=== PATIENT | male | born 1950 | race Caucasian/White ===

== ENCOUNTER 2019-02-16 21:41 | Inpatient (IN) | payer MEDICARE ==
[~2019-02-16] VITALS: Ht 172.7 cm; Wt 68.0 kg
[~2019-02-16 21:41] MED LIST: BP MEDICATION; COLACE100 MG PO; DIFLUCAN200 MG PO; FLOMAX0.4 MG PO; FLORAJEN3 CAPS460 MG PO; Nicoderm [PBKC] TRANSDERM; OMNICEF300 MG PO; POTASSIUM99 M1; VISTARIL25 MG PO
[2019-02-16] MEDS ORDERED: BP PILL (21:43)
[2019-02-16] MEDS ORDERED: [UNRECOGNIZED DRUG - REMARK] (21:43)
[2019-02-16] MEDS ORDERED: DIABETIC PILL (21:44)
[2019-02-16 22:11] LABS: BASOPHILS 0.1 % (0-2); EOSINOPHILS 0.5 % (0-7); HEMATOCRIT 41.1 % (42.0-54.0); HEMOGLOBIN 14.1 g/dL (13.5-17.5); IMMATURE GRANULOCYTES 0.3 % (0-5); LYMPHOCYTES 3.7 % (15-50); MCH 32.6 pg (26.0-34.0); MCHC 34.3 g/dL (31.0-37.0); MCV 94.9 fL (80.0-100.0); MEAN PLATELET VOLUME 10.3 fL (7.4-10.4); MONOCYTES 6.4 % (2-11); RBC 4.33 10x6/uL (4.20-6.10); WBC 16.8 10x3/uL (4.8-10.8)
[2019-02-16 22:36] LABS: PLATELET COUNT 269 10x3/uL (130-400)
[2019-02-16 22:41] LABS: ANION GAP 15.5 mmol/L (8-16); CALCIUM 9.4 mg/dL (8.5-10.1); CARBON DIOXIDE 24.6 mmol/L (21.0-32.0); CREATININE - SERUM 1.6 mg/dL (0.6-1.3); POTASSIUM - SERUM 4.1 mmol/L (3.5-5.1)
[2019-02-16 22:47] LABS: ALBUMIN 3.7 g/dL (3.4-5.0); BILIRUBIN - TOTAL 0.61 mg/dL (0.2-1.3); PROTEIN - SERUM 8.5 g/dL (6.4-8.2)
[2019-02-16 22:55] LABS: APTT 36.9 SECONDS (22.8-39.4); INR 1.08 (0.85-1.17); PROTIME 13.5 SECONDS (11.6-15.0)
--- NOTE | 2019-02-17 02:05 | NUR ---
ADMITTED TO ROOM FROM ER ALERT AND ORIENTIATED, SEE ASSESSMENT, OPEN WOUND TO 2ND TOE LEFT FOOT STERILE DRESSING APPLIED ORDERED, DENIES PAIN, INSTRUCTED ON NEED TO BE ON BEDREST TONIGHT DUE TO RECENT DISLOCATED HIP WHICH WAS REPLACED IN ER, ALSO NOTHING TO EAT OR DRINK PENDING SURGERY OF TOE TOMORROW, VERBALIZED UNDERSTANDING, ORIENITATED TO ROOM CALL LIGHT IN REACH
[2019-02-17 02:32] VITALS: BP 153/79; BMI 22.8
--- NOTE | 2019-02-17 02:55 | NUR ---
I have reviewed this patient and I concur with the Shift Assessment completed by the Licensed Practical Nurse today this shift.
[2019-02-17 09:16] LABS: BASOPHILS 0.1 % (0-2); EOSINOPHILS 0.5 % (0-7); IMMATURE GRANULOCYTES 0.3 % (0-5); LYMPHOCYTES 4.3 % (15-50); MCH 32.5 pg (26.0-34.0); MCHC 34.2 g/dL (31.0-37.0); MEAN PLATELET VOLUME 9.9 fL (7.4-10.4); MONOCYTES 7.3 % (2-11); NEUTROPHILS 87.5 % (40-80); RDW 14.2 % (11.5-14.5); WBC 14.5 10x3/uL (4.8-10.8)
[2019-02-17 09:21] VITALS: BP 139/68
[2019-02-17 09:26] LABS: PLATELET COUNT 214 10x3/uL (130-400)
[2019-02-17 09:33] LABS: ANION GAP 11.3 mmol/L (8-16); CALCIUM 8.9 mg/dL (8.5-10.1); CARBON DIOXIDE 24.6 mmol/L (21.0-32.0); CREATININE - SERUM 1.4 mg/dL (0.6-1.3); POTASSIUM - SERUM 3.9 mmol/L (3.5-5.1)
--- NOTE | 2019-02-17 12:36 | NUR ---
PT RESTING IN BED. NO SIGNS OF DISTRESS. IV TO RIGHT AC PATENT NO REDNESS OR TENDERNESS. RIGHT SECOND TOE BLACK. COMPLAINS OF PAIN. MEDICATION GIVEN. CALL LIGHT REACH. BED LOW POSITION. NO FAMILY AT BEDSIDE AT THIS TIME.
[2019-02-17 12:40] VITALS: BP 125/70
[2019-02-17 13:00] VITALS: Ht 172.7 cm; Wt 68.0 kg
[2019-02-17 14:53] VITALS: BP 158/82
[2019-02-17 15:32] LABS: UDS - AMPHET NEGATIVE QUAL (NEGATIVE); UDS - BARB NEGATIVE QUAL (NEGATIVE); UDS - BENZO NEGATIVE QUAL (NEGATIVE); UDS - COCAINE NEGATIVE QUAL (NEGATIVE); UDS - OPIATE POSITIVE QUAL (NEGATIVE); UDS - PCP NEGATIVE QUAL (NEGATIVE); UDS - THC NEGATIVE QUAL (NEGATIVE)
[2019-02-17 15:45] LABS: APPEARANCE HAZY (CLEAR); BILIRUBIN NEGATIVE (NEGATIVE); COLOR YELLOW (YELLOW); GLUCOSE NEGATIVE (NEGATIVE); KETONE NEGATIVE (NEGATIVE); NITRITE POSITIVE (NEGATIVE); PROTEIN TRACE mg/dL (NEGATIVE); UROBILINOGEN NORMAL (NORMAL)
[2019-02-17 15:46] LABS: BACTERIA MANY /hpf (NEGATIVE); RED CELLS - URINE 0-5 /hpf (0-5); WHITE CELLS - URINE >50 /hpf (NEGATIVE)
--- NOTE | 2019-02-17 16:31 | NUR ---
Rehab Note- Acute INpatietn Rehab prescreen order received. THe patient has [employer] insurance and will require a PreAuth prior to an acute inpatient stay. He needs a PT & OT Eval completed to see the patient's functional mobility. Will follow at this time. THank you for this referral! Bettie Valadez RN Clinical Liaison, [facility] Rehab
--- NOTE | 2019-02-17 16:37 | MORECARE ---
CASE MANAGEMENT DISCHARGE SUMMARY PATIENT: ARTUR WHITE UNIT: [id number] ADM DATE: 02/17/19 AGE: 68 : 50 SEX: M ROOM/BED: D.2226 AUTHOR: DALLAS DUKE PHYSICIAN: REFERRING PHYSICIAN: MINOO TRIPLETT MD DATE OF SERVICE: 02/17/19 Discharge Plan Patient Name: ARTUR WHITE [facility] [facility] 1950 Planned Disposition: Home Anticipated Discharge Date: Discharge Date: Expected LOS: Initial Reviewer: [id number] Initial Review Date: 02/17/2019 Generated: 02/17/19 5:37 pm DCPIA - Discharge Planning Initial Assessment Updated by [email or web address]: Cheryl Peraza on 02/17/19 4:35 pm * Is the patient Alert and Oriented? Yes * [facility] * [facility] * Preadmission Environment Home Alone * ADLs Partial Dependent * Partial ADLs (Assistance needed) Ambulation * Equipment Power Chair or Electric Scooter Walker * List name and contact numbers for known caregivers / representatives who currently or will assist patient after discharge: Wellington White [facility] - [phone] * Verbal permission to speak to the caregivers and representatives has been obtained from the patient. Yes * Community resources currently utilized Private Duty Care * Additional services required to return to the preadmission environment? No * Can the patient safely return to the preadmission environment? Yes * Has this patient been hospitalized within the prior 30 days at any hospital? No Patient Name: ARTUR WHITE Page 12761 at 1637 All edits/amendments must be made on the electronic document DICTATION DATE: 02/17/19 163 OYSTER GRADER: TESFAYE 02/17/19 1636 RPT#: [id number] DC DATE: STATUS: ADM IN [facility] [address] [place] [address] END OF REPORT
--- NOTE | 2019-02-17 16:46 | MORECARE ---
CASE MANAGEMENT DISCHARGE SUMMARY PATIENT: ARTUR WHITE UNIT: [id number] ADM DATE: 02/17/19 AGE: 68 : 50 SEX: M ROOM/BED: D.2226 AUTHOR: DALLAS DUKE PHYSICIAN: REFERRING PHYSICIAN: MINOO TRIPLETT MD DATE OF SERVICE: 02/17/19 Discharge Plan Patient Name: ARTUR WHITE Facility: [facility]:[place] : 1950 Planned Disposition: Home Anticipated Discharge Date: Discharge Date: Expected LOS: Initial Reviewer: [email or web address] Initial Review Date: 02/17/2019 Generated: 02/17/19 5:46 pm Comments DCP- Discharge Planning Updated by [email or web address]: Cheryl Peraza on 02/17/19 3:[address] Patient Name: ARTUR WHITE Admission Status: ER Accout number: [id number] Admission Date: 02-17-2019 : 1950 Admission Diagnosis: Attending: MINOO TRIPLETT Current LOS: 1 Anticipated DC Date: Planned Disposition: Home Primary Insurance: [employer] MEDICARE ADV Discharge Planning Comments: CM met with patient to complete initial dc planning assessment, he is alone in the room. CM educated patient on the CM role and verbal consent given by patient to complete assessment. Patient lives at [facility] at [address] He lives alone. At discharge patient plans to return and feels this is a safe discharge. CM discussed availability of home health, rehab services, and medical equipment. Patient states he has a animal care assistant "from the [place] that comes in twice a week on and to assist with house cleaning and bathing. He states he is mainly always in his electric wheelchair. He [facility] He states his sister will get the pain medicine he needs, [facility], so if home health is needed, it would need to be set up through the [facility], he voices understanding. A rehab screen has been ordered, it would require preauthorization. CM will continue to follow and will assist as needed with dc plans/needs. Ed Transporter: Cheryl Peraza DCPIA - Discharge Planning Initial Assessment Updated by [id number]: Cheryl Peraza on 02/17/19 4:35 pm * Is the patient Alert and Oriented? Yes * [place]CP [facility] [place] [facility] * [place] * Preadmission Environment Home Alone * ADLs Partial Dependent * Partial ADLs (Assistance needed) Ambulation * Equipment Power Chair or Electric Scooter Walker * List name and contact numbers for known caregivers / representatives who currently or will assist patient after discharge: Wellington White - [facility] - [phone] * Verbal permission to speak to the caregivers and representatives has been obtained from the patient. Yes * Community resources currently utilized Private Duty Care * Additional services required to return to the preadmission environment? No * Can the patient safely return to the preadmission environment? Yes * Has this patient been hospitalized within the prior 30 days at any hospital? No Last DP export: 02/17/19 3:37 Patient Name: ARTUR WHITE Page 99816 at 1646 All edits/amendments must be made on the electronic document DICTATION DATE: 02/17/191645 MARINE SURVEYOR: TESFAYE 02/17/191645 RPT#: [id number] DC DATE: STATUS: ADM IN [facility] [address] [place] [address] END OF REPORT
--- NOTE | 2019-02-17 20:00 | NUR ---
ASSESSMENT PER FLOWSHEET. IV PATENT RT AC OF NS AT 50CC'S/HR. LEFT FOOT SECONG TOE AMPUTATED DRSG C/D/I.RIGHT FOOT SECOND TOE WITH TINY BLACK SORE NOTED. SR UP X2 CALL LIGHT WITHIN REACH.
[2019-02-17 20:28] VITALS: BP 137/68
--- NOTE | 2019-02-17 21:30 | NUR ---
MEDS GIVEN PER MAR. ROLP=170. NO COVERAGE NEEDED.
--- NOTE | 2019-02-18 00:07 | NUR ---
EYES CLOSED RESPIRATIONS WITH EASE AND UNLABORED.
[2019-02-18 01:16] VITALS: BP 130/64
[2019-02-18 04:54] VITALS: BP 129/72
[2019-02-18 06:39] LABS: ANION GAP 14.9 mmol/L (8-16); BILIRUBIN - TOTAL 0.58 mg/dL (0.2-1.3); CALCIUM 8.6 mg/dL (8.5-10.1); CARBON DIOXIDE 21.6 mmol/L (21.0-32.0); CREATININE - SERUM 1.4 mg/dL (0.6-1.3); POTASSIUM - SERUM 3.5 mmol/L (3.5-5.1); PROTEIN - SERUM 6.9 g/dL (6.4-8.2)
[2019-02-18 06:47] LABS: ALBUMIN 2.7 g/dL (3.4-5.0)
--- NOTE | 2019-02-18 07:17 | NUR ---
PT RESTING IN BED WITH EYES OPEN, ALERT AND ORIENTED. IV LOCATED TO RIGHT AC CURRENTLY RCVING NS @ 50ML. NO S/S OF DISTRESS AND DENIES NEEDS, WILL CONT TO MONITOR.
[2019-02-18 07:46] LABS: BASOPHILS 0.2 % (0-2); EOSINOPHILS 2.5 % (0-7); HEMATOCRIT 37.4 % (42.0-54.0); HEMOGLOBIN 12.5 g/dL (13.5-17.5); IMMATURE GRANULOCYTES 0.2 % (0-5); MCH 32.1 pg (26.0-34.0); MCHC 33.4 g/dL (31.0-37.0); MCV 95.9 fL (80.0-100.0); MONOCYTES 7.2 % (2-11); NEUTROPHILS 78.9 % (40-80); PLATELET COUNT 215 10x3/uL (130-400); RDW 14.6 % (11.5-14.5); WBC 11.1 10x3/uL (4.8-10.8)
[2019-02-18 09:21] VITALS: BP 123/64
[2019-02-18 13:10] VITALS: BP 121/63
[2019-02-18 16:21] VITALS: BP 117/61
--- NOTE | 2019-02-18 17:16 | NUR ---
OT NOTE: PT COMPLETED SUPINE TO SIT WITH MIN A. PT COMPLETED SIT TO STAND WITH MIN A. PT IS [place] AND REQUIRED CUES. PT COMPLETED GROOMING TASKS WITH CGA. THANK YOU, STEFANIE GRIFFIN
--- NOTE | 2019-02-18 19:47 | NUR ---
IN BED WITH TELEVISION ON, PLEASANT MOOD AND AFFECT, IV TO RIGHT AC IS INFUSING NS AT 50 VIA PUMP, ABLE TO VOICE ALL NEEDS. DENIES PAIN. BLOOD SUGAR WAS 167 DID NOT WANT INSULIN. ON CONTACT ISOLATION WITH ALL PRECAUTIONS IN PLACE. DENIES ANY ACUTE DISTRESS. WILL NOTE ANY CHANGE.
[2019-02-18 20:00] VITALS: BP 138/72
--- NOTE | 2019-02-18 23:41 | NUR ---
RESTING WELL SO FAR THIS SHIFT, HAS VOICED NO CONCERNS. WILL CONTINUE TO OBSERVE.
--- NOTE | 2019-02-19 03:44 | NUR ---
I have reviewed this patient and I concur with the Shift Assessment completed by the Licensed Practical Nurse today this shift.
[2019-02-19 04:00] VITALS: BP 1685/84
[2019-02-19 06:23] LABS: ANION GAP 15.1 mmol/L (8-16); CALCIUM 8.7 mg/dL (8.5-10.1); CARBON DIOXIDE 25.2 mmol/L (21.0-32.0); CREATININE - SERUM 1.3 mg/dL (0.6-1.3); POTASSIUM - SERUM 3.3 mmol/L (3.5-5.1)
[2019-02-19 06:41] LABS: BASOPHILS 0.3 % (0-2); EOSINOPHILS 3.1 % (0-7); HEMOGLOBIN 13.3 g/dL (13.5-17.5); IMMATURE GRANULOCYTES 0.1 % (0-5); LYMPHOCYTES 12.8 % (15-50); MCH 32.2 pg (26.0-34.0); MCHC 34.1 g/dL (31.0-37.0); MCV 94.4 fL (80.0-100.0); MEAN PLATELET VOLUME 10.8 fL (7.4-10.4); MONOCYTES 7.1 % (2-11); NEUTROPHILS 76.6 % (40-80); PLATELET COUNT 246 10x3/uL (130-400); RBC 4.13 10x6/uL (4.20-6.10); RDW 14.1 % (11.5-14.5)
[2019-02-19 06:44] LABS: WBC 7.3 10x3/uL (4.8-10.8)
--- NOTE | 2019-02-19 07:00 | NUR ---
ALERT AND ORIENTED, RESTING IN BED. ON CONTACT ISOLATION FOR POSSIBLE STAPH IN WOUND. WOUND TO RIGHT FOOT, SECOND TOE. UP WITH ASSIST. NO C/O PAIN. NO S/S OF ACUTE DISTRESS NOTED. IV TO RIGHT AC, NS INFUSING @ 50ML/HR. SITE PATENT WITHOUT REDNESS OR SWELLING. ACHS. PATIENT DENIES ANY NEEDS AT THIS TIME. CALL LIGHT IN REACH. WILL CONTINUE TO MONITOR.
[2019-02-19 09:50] VITALS: BP 183/97
--- NOTE | 2019-02-19 10:41 | NUR ---
OT NOTE: PT REPORTED FEELING BETTER TODAY. BED MOB WITH MOD ASSIST; EOB SITTING WITH CGA(FAIR STATIC SITTING BALANCE)..ATTEMPTED SIT TO STAND WITH BOTH OT AND PT; F-/P+ STANDING BALANCE. LEANS BACKWARDS DURING ALL STANDING ATTEMPTS. BED MOB BACK TO BED WITH MOD ASSIST TO PREVENT INJURY TO L HIP. SIMPLE GROOMING AND USE OF URINAL WITH SET UP. JONATHON PERRY, OTR/L
--- NOTE | 2019-02-19 12:02 | NUR ---
Rehab NOte- Per OT & PT Evals the patient is low level, would suggest a SNF. Spoke with LUAN Luna. Thank you for this referral! Bettie Valadez RN Clinical Liaison, [facility] Rehab
--- NOTE | 2019-02-19 12:44 | MORECARE ---
CASE MANAGEMENT DISCHARGE SUMMARY PATIENT: ARTUR WHITE UNIT: [id number] ADM DATE: 02/17/19 AGE: 68 : 50 SEX: M ROOM/BED: D.2226 AUTHOR: DALLAS DUKE PHYSICIAN: REFERRING PHYSICIAN: MINOO TRIPLETT MD DATE OF SERVICE: 02/19/19 Discharge Plan Patient Name: ARTUR WHITE Facility: [facility]:[place] : 1950 Planned Disposition: Home Anticipated Discharge Date: Discharge Date: Expected LOS: Initial Reviewer: [email or web address] Initial Review Date: 02/17/2019 Generated: 02/19/19 1:43 pm DCP- Discharge Planning Updated by [email or web address]: Cheryl Peraza on 02/17/19 3:[address] Patient Name: ARTUR WHITE Admission Status: ER Accout number: [id number] Admission Date: 02-17-2019 : 1950 Admission Diagnosis: Attending: MINOO TRIPLETT Current LOS: 1 Anticipated DC Date: Planned Disposition: Home Primary Insurance: [employer] MEDICARE ADV Discharge Planning Comments: CM met with patient to complete initial dc planning assessment, he is alone in the room. CM educated patient on the CM role and verbal consent given by patient to complete assessment. Patient lives at [facility] at [address] He lives alone. At discharge patient plans to return and feels this is a safe discharge. CM discussed availability of home health, rehab services, and medical equipment. Patient states he has a transition of care specialist "from the [place] that comes in twice a week on and to assist with house cleaning and bathing. He states he is mainly always in his electric wheelchair. He states he [facility] not [facility]. He states his sister will get the pain medicine he needs, [facility] only [facility] for [facility], so if home health is needed, it would need to be set up through the [facility], he voices understanding. A rehab screen has been ordered, it would require preauthorization. CM will continue to follow and will assist as needed with dc plans/needs. Career Services Manager: Cheryl Peraza DCPIA - Discharge Planning Initial Assessment Updated by [email or web address]: Cheryl Peraza on 02/17/19 4:35 pm * Is the patient Alert and Oriented? Yes * PCP [facility] [place] [facility] * [place] * Preadmission Environment Home Alone * ADLs Partial Dependent * Partial ADLs (Assistance needed) Ambulation * Equipment Power Chair or Electric Scooter Walker * List name and contact numbers for known caregivers / representatives who currently or will assist patient after discharge: Wellington White - [facility] - [phone] * Verbal permission to speak to the caregivers and representatives has been obtained from the patient. Yes * Community resources currently utilized Private Duty Care * Additional services required to return to the preadmission environment? No * Can the patient safely return to the preadmission environment? Yes * Has this patient been hospitalized within the prior 30 days at any hospital? No Coverage Notice Reviewer: [id number] - Cheryl Peraza Notice Issued Date-Time: 02/19/2019 12:39 Notice Type: Patient Choice Letter Notice Delivered To: Patient Relationship to Patient: Self Contract Mail Carrier Name: Delivery Method: HAND - Hand Delivered Katherin Days: Prior Verbal Notification: Recipient Understood Notice: Yes Recipient Signature: Yes Med Rec Note Co-signed by Attending: Coverage Notice Comment: [place] [facility], [facility] Last DP export: 02/17/19 3:46 Patient Name: ARTUR WHITE Page 79777 at 1244 All edits/amendments must be made on the electronic document DICTATION DATE: 02/19/19 124 VIDEOTAPE RECORDING ENGINEER: TESFAYE 02/19/19 1243 RPT#: [id number] DC DATE: STATUS: ADM IN [facility] [address] [place] [address] END OF REPORT
--- NOTE | 2019-02-19 12:51 | MORECARE ---
CASE MANAGEMENT DISCHARGE SUMMARY PATIENT: ARTUR WHITE UNIT: [id number] ADM DATE: 02/17/19 AGE: 68 : 50 SEX: M ROOM/BED: D.2226 AUTHOR: DALLAS DUKE PHYSICIAN: REFERRING PHYSICIAN: MINOO TRIPLETT MD DATE OF SERVICE: 02/19/19 Discharge Plan Patient Name: ARTUR WHITE Facility[facility]:[place] : 1950 Planned Disposition: Home Anticipated Discharge Date: Discharge Date: Expected LOS: Initial Reviewer: [email or web address] Initial Review Date: 02/17/2019 Generated: 02/19/19 1:50 pm DCP- Discharge Planning Updated by [email or web address]: Cheryl Peraza on 02/17/19 3:[address] Patient Name: ARTUR WHITE Admission Status: ER Accout number: [id number] Admission Date: 02-17-2019 : 1950 Admission Diagnosis: Attending: MINOO TRIPLETT Current LOS: 1 Anticipated DC Date: Planned Disposition: Home Primary Insurance: [employer] MEDICARE ADV Discharge Planning Comments: CM met with patient to complete initial dc planning assessment, he is alone in the room. CM educated patient on the CM role and verbal consent given by patient to complete assessment. Patient lives at [facility] at [address] He lives alone. At discharge patient plans to return and feels this is a safe discharge. CM discussed availability of home health, rehab services, and medical equipment. Patient states he has a respiratory care program director "from the [place] that comes in twice a week on and to assist with house cleaning and bathing. He states he is mainly always in his electric wheelchair. He states he does not [facility]. He states his sister will get the pain medicine he needs, [facility] only [facility] for his [facility], so if home health is needed, it would need to be set up through the [facility], he voices understanding. A rehab screen has been ordered, it would require preauthorization. CM will continue to follow and will assist as needed with dc plans/needs. Books Salesperson: Cheryl Peraza DCPIA - Discharge Planning Initial Assessment Updated by [id number]: Cheryl Peraza on 02/17/19 4:35 pm * Is the patient Alert and Oriented? Yes * PCP [facility] [place] [facility] * [place] * Preadmission Environment Home Alone * ADLs Partial Dependent * Partial ADLs (Assistance needed) Ambulation * Equipment Power Chair or Electric Scooter Walker * List name and contact numbers for known caregivers / representatives who currently or will assist patient after discharge: Wellington White - [facility] - [phone] * Verbal permission to speak to the caregivers and representatives has been obtained from the patient. Yes * Community resources currently utilized Private Duty Care * Additional services required to return to the preadmission environment? No * Can the patient safely return to the preadmission environment? Yes * Has this patient been hospitalized within the prior 30 days at any hospital? No External Providers External Provider: [facility] Next Contact Date: Service Request Date: Service Type: Resolution: Reviewer: Comments: Coverage Notice Reviewer: [id number] - Cheryl Peraza Notice Issued Date-Time: 02/19/2019 12:39 Notice Type: Patient Choice Letter Notice Delivered To: Patient Relationship to Patient: Self Gristmill Operator Name: Delivery Method: HAND - Hand Delivered Katherin Days: Prior Verbal Notification: Recipient Understood Notice: Yes Recipient Signature: Yes Med Rec Note Co-signed by Attending: Coverage Notice Comment: [place] [facility] FIRST, [facility] SECOND Last DP export: 02/19/19 11:44 Patient Name: ARTUR WHITE Page 43537 at 1251 All edits/amendments must be made on the electronic document DICTATION DATE: 02/19/19 1250 PAINTER SUPERVISOR: TESFAYE 02/19/19 1250 RPT#: [id number] DC DATE: STATUS: ADM IN [facility] [address] [place] [address] END OF REPORT
--- NOTE | 2019-02-19 12:59 | MORECARE ---
CASE MANAGEMENT DISCHARGE SUMMARY PATIENT: ARTUR WHITE UNIT: [id number] ADM DATE: 02/17/19 AGE: 68 : 50 SEX: M ROOM/BED: D.2226 AUTHOR: LEILANI,DOC PHYSICIAN: REFERRING PHYSICIAN: MINOO TRIPLETT MD DATE OF SERVICE: 02/19/19 Discharge Plan Patient Name: ARTUR WHITE Facility[facility]:[place] : 1950 Planned Disposition: Home Anticipated Discharge Date: Discharge Date: Expected LOS: Initial Reviewer: [email or web address] Initial Review Date: 02/17/2019 Generated: 02/19/19 1:58 pm Comments DCP- Discharge Planning Updated by [email or web address]: Cheryl Peraza on 02/19/19 11:[address] I spoke with Bettie in inpatient rehab and she recommends SNF placement. I spoke with the patient and he chooses [facility] for his first choice and [facility] for his second choice. I called pilar Cash for [facility], and clinical faxed to [phone]. Shreya states she will forward the fax to [facility]. CM will continue to follow and assist with discharge planning/needs. DCP- Discharge Planning Updated by [email or web address]: Cheryl Peraza on 02/17/19 3:[address] Patient Name: ARTUR WHITE Admission Status: ER Accout number: [id number] Admission Date: 02-17-2019 : 1950 Admission Diagnosis: Attending: MINOO TRIPLETT Current LOS: 1 Anticipated DC Date: Planned Disposition: Home Primary Insurance: Pay-Me MEDICARE ADV Discharge Planning Comments: CM met with patient to complete initial dc planning assessment, he is alone in the room. CM educated patient on the CM role and verbal consent given by patient to complete assessment. Patient lives at [facility] at [address] He lives alone. At discharge patient plans to return and feels this is a safe discharge. CM discussed availability of home health, rehab services, and medical equipment. Patient states he has a medicare interviewer [place] that comes [place] week on and to assist with house cleaning and bathing. He states he is mainly always in his electric wheelchair. He states he does not wish to be [facility] to the [facility]. He states his sister will get the pain medicine he needs, [facility]. [facility] only [facility] for his physician, so if home health is needed, it would need to be set up through the VA, he voices understanding. A rehab screen has been ordered, it would require preauthorization. CM will continue to follow and will assist as needed with dc plans/needs. Ballistics Expert: Cheryl Peraza DCPIA - Discharge Planning Initial Assessment Updated by [email or web address]: Cheryl Peraza on 02/17/19 4:35 pm * Is the patient Alert and Oriented? Yes * [facility]CP [facility] [place] [facility] * [place] * Preadmission Environment Home Alone * ADLs Partial Dependent * Partial ADLs (Assistance needed) Ambulation * Equipment Power Chair or Electric Scooter Walker * List name and contact numbers for known caregivers / representatives who currently or will assist patient after discharge: Wellington White - [facility] - [phone] * Verbal permission to speak to the caregivers and representatives has been obtained from the patient. Yes * Community resources currently utilized Private Duty Care * Additional services required to return to the preadmission environment? No * Can the patient safely return to the preadmission environment? Yes * Has this patient been hospitalized within the prior 30 days at any hospital? No Coverage Notice Reviewer: [id number] Peraza Notice Issued Date-Time: 02/19/2019 12:39 Notice Type: Patient Choice Letter Notice Delivered To: Patient Relationship to Patient: Self Manager Action Name: Delivery Method: HAND - Hand Delivered Katherin Days: Prior Verbal Notification: Recipient Understood Notice: Yes Recipient Signature: Yes Med Rec Note Co-signed by Attending: Coverage Notice Comment: [place] [facility], [facility] Reviewer: [id number] Jerry Peraza Notice Issued Date-Time: 02/19/2019 12:50 Notice Type: Patient Choice Letter Notice Delivered To: Patient Relationship to Patient: Self Manager Action Name: Delivery Method: HAND - Hand Delivered Katherin Days: Prior Verbal Notification: Recipient Understood Notice: Yes Recipient Signature: Yes Med Rec Note Co-signed by Attending: Coverage Notice Comment: [place] [facility] 1)[facility] 2) [facility] Last DP export: 02/19/19 11:51 Patient Name: ARTUR WHITE Page 98999 at 1259 All edits/amendments must be made on the electronic document DICTATION DATE: 02/19/191257 RESTRICTIVE PREPARATION OPERATOR: TESFAYE 02/19/191257 RPT#: [id number] DC DATE: STATUS: ADM IN [facility] [address] [place] [address] END OF REPORT
--- NOTE | 2019-02-19 13:13 | NUR ---
NUTRITION F/U CHART REVIEWED, PT VISIT. TOLERATING DIABETIC DIET WITH GOOD INTAKE RECENT MEALS. REMAINS IN ISOLATION. WILL CONTINUE TO PROVIDE DIET, MONITOR PO INTAKE. RD FOLLOWING
--- NOTE | 2019-02-19 16:55 | NUR ---
I have reviewed this patient and I concur with the Shift Assessment completed by the Licensed Practical Nurse today this shift.
[2019-02-19 17:07] VITALS: BP 163/75
--- NOTE | 2019-02-19 18:45 | NUR ---
ALERT AND ORIENTED, RESTING IN BED. NO C/O PAIN. NO S/S OF ACUTE DISTRESS NOTED. CALL LIGHT IN REACH. DENIES ANY NEEDS AT THIS TIME.
[2019-02-19 19:40] VITALS: BP 169/84
--- NOTE | 2019-02-19 19:45 | NUR ---
PT ALERT AND ORIENTED, SLURS WORDS, BUT ANSWERS APPROPRIATELY. DRESSING TO LEFT FOOT INTACT. 2ND TOE ON RIGHT FOOT HAS SCABBED AREA, PT DENIES PAIN AT THIS TIME, FSBS 109, WILL CONTINUE TO MONITOR.
--- NOTE | 2019-02-20 03:05 | NUR ---
I have reviewed this patient and I concur with the Shift Assessment completed by the Licensed Practical Nurse today this shift.
[2019-02-20 04:00] VITALS: BP 162/90
[2019-02-20 05:23] LABS: BASOPHILS 0.3 % (0-2); EOSINOPHILS 4.6 % (0-7); HEMATOCRIT 37.7 % (42.0-54.0); HEMOGLOBIN 12.6 g/dL (13.5-17.5); IMMATURE GRANULOCYTES 0.4 % (0-5); LYMPHOCYTES 19.1 % (15-50); MCH 31.6 pg (26.0-34.0); MCHC 33.4 g/dL (31.0-37.0); MCV 94.5 fL (80.0-100.0); MEAN PLATELET VOLUME 10.5 fL (7.4-10.4); MONOCYTES 9.7 % (2-11); NEUTROPHILS 65.9 % (40-80); PLATELET COUNT 251 10x3/uL (130-400); RBC 3.99 10x6/uL (4.20-6.10); RDW 13.9 % (11.5-14.5)
[2019-02-20 05:52] LABS: ANION GAP 13.2 mmol/L (8-16); CALCIUM 8.9 mg/dL (8.5-10.1); CARBON DIOXIDE 24.4 mmol/L (21.0-32.0); CREATININE - SERUM 1.2 mg/dL (0.6-1.3); POTASSIUM - SERUM 3.6 mmol/L (3.5-5.1)
--- NOTE | 2019-02-20 07:47 | NUR ---
PT RESTING IN BED. NO SIGNS OF DISTRESS. IV TO RIGHT HAND PATENT NO REDNESS OR TENDERNESS. HAS DRESSING TO LEFT FOOT SECOND TOE. DENIES ANY FURTHER NEED AT THIS TIME. CALL LIGHT IN REACH. BED LOW POSITION. NO FAMILY AT BEDSIDE AT THIS TIME.
[2019-02-20 08:08] VITALS: BP 154/81
--- NOTE | 2019-02-20 12:12 | NUR ---
OT NOTE: UPON ENTERING ROOM, PT WAS CONFUSED AND DISORIENTED. REQUESTING FOR SOMEONE TO HELP HIM GET BACK DOWN TO HIS ROOM DOWNSTAIRS. ATTEMPTED TO RE-ORIENT PT AND AFTER SOME TIME, PT WAS DOING BETTER. THROUGHOUT THERAPY SESSION, HE REMEMBERED MARIEL, THE PHYS THERAPIST, AND MYSELF( THOUGH IT WAS THE WRONG NAME). BED MOB WITH MIN/MOD ASSIST; SITTING BALANCE ON EOB WAS IMPROVED FROM YESTERDAY AND HE WAS ABLE TO MAINTAIN STATIC SITTING WITH SBA. SIT TO STAND WITH MIN ASSIST AND USE OF WALKER. MIN/MOD ASSIST FOR STANDING BALANCE. PT UNABLE TO ADVANCE FEET FORWARD OR SIDE STEP. ABLE TO WASH FACE AND HANDS WITH CLOTH, MIN ASSIST TO CLIFF GOWN; MAX ASSIST TO CLIFF SOCK. PROVIDED CLEAN LINENS AND REQUIRED MOD ASSIST FOR SIT TO SUPINE; CONSTANT CUES FOR HIP PRECAUTIONS. JONATHON PERRY, Babita TR/L
[2019-02-20 13:32] VITALS: BP 154/77
[2019-02-20 14:21] VITALS: BP 154/77
[2019-02-20 16:30] VITALS: BP 141/83
--- NOTE | 2019-02-20 18:59 | NUR ---
PATIENT RESTING IN BED WITH NO S/S OF DISTRESS AND DENIES NEEDS AT THIS TIME. BED IN LOWEST POSITION AND CALL LIGHT WITHIN REACH. ENCOURAGED THE PATIENT TO CALL IF HE HAS NEEDS. WILL CONTINUE TO MONITOR.
--- NOTE | 2019-02-20 19:29 | NUR ---
PATIENT RESTING IN BED WITH NO S/S OF DISTRESS. PATIENT REQIESTED MEDICATION FOR PAIN. ADMINISTERED TYLENOL PER ORDERS. PATIENT DENIES OTHER NEEDS AT THIS TIME. BED IN LOWEST POSITION AND CALL LIGHT WITHIN REACH. ENCOURAGED THE PATIENT TO CALL IF SHE HAS NEEDS. WILL CONTINUE TO MONITOR.
[2019-02-20 20:00] VITALS: BP 162/81
[2019-02-21 04:00] VITALS: BP 157/83
[2019-02-21 05:57] LABS: BASOPHILS 0.4 % (0-2); EOSINOPHILS 6.8 % (0-7); HEMATOCRIT 37.3 % (42.0-54.0); HEMOGLOBIN 12.6 g/dL (13.5-17.5); IMMATURE GRANULOCYTES 0.4 % (0-5); LYMPHOCYTES 24.9 % (15-50); MCH 31.6 pg (26.0-34.0); MCHC 33.8 g/dL (31.0-37.0); MCV 93.5 fL (80.0-100.0); MEAN PLATELET VOLUME 10.1 fL (7.4-10.4); MONOCYTES 7.8 % (2-11); NEUTROPHILS 59.7 % (40-80); PLATELET COUNT 238 10x3/uL (130-400); RBC 3.99 10x6/uL (4.20-6.10); RDW 13.7 % (11.5-14.5)
[2019-02-21 06:10] LABS: CALCIUM 8.7 mg/dL (8.5-10.1); CARBON DIOXIDE 24.3 mmol/L (21.0-32.0); CREATININE - SERUM 1.2 mg/dL (0.6-1.3); POTASSIUM - SERUM 3.3 mmol/L (3.5-5.1)
--- NOTE | 2019-02-21 07:39 | NUR ---
PT RESTING IN BED. NO SIGNS OF DISTRESS. IV TO RIGHT HAND PATENT NO REDNESS OR TENDERNESS. HAS INCISION TO SECOND TOE ON LEFT FOOT. DRESSING CLEAN AND INTACT. ON CONTACT ISO. DENIES ANY FURTHER NEED AT THIS TIME. CALL LIGHT IN REACH. BED LOW POSITION. NO FAMILY AT BEDSIDE AT THIS TIME.
[2019-02-21 07:49] VITALS: BP 164/81
[2019-02-21 13:10] VITALS: BP 135/77
--- NOTE | 2019-02-21 14:49 | NUR ---
I have reviewed this patient and I concur with the Shift Assessment completed by the Licensed Practical Nurse today this shift.
--- NOTE | 2019-02-21 14:50 | NUR ---
I have reviewed this patient and I concur with the Shift Assessment completed by the Licensed Practical Nurse today this shift.
[2019-02-21 17:04] VITALS: BP 159/79
--- NOTE | 2019-02-21 19:18 | NUR ---
PATIENT RESTING IN BED WITH NO S/S OF DISTRESS. EMPTIED PATIENT'S URINALS AND CLEARED HIS DINNER TRAY. PATIENT DENIES OTHER NEEDS AT THIS TIME. BED IN LOWEST POSITION AND CALL LIGHT WITHIN REACH. ENCOURAGED THE PATIENT TO CALL IF HE HAS OTHER NEEDS. WILL CONTINUE TO MONITOR.
[2019-02-21 20:00] VITALS: BP 153/77
[2019-02-22] VITALS: BP 138/73
[2019-02-22 04:00] VITALS: BP 144/75
[2019-02-22 05:13] LABS: ANION GAP 14.9 mmol/L (8-16); CREATININE - SERUM 1.2 mg/dL (0.6-1.3); POTASSIUM - SERUM 3.9 mmol/L (3.5-5.1)
--- NOTE | 2019-02-22 07:23 | NUR ---
PT RESTING IN BED. NO SIGNS OF DISTRESS. IV TO LEFT FORARM PATENT NO REDNESS OR TENDERNESS. HAS INCISION TO LEFT FOOT SECOND TOE. DENIES ANY FURHTER NEED AT THIS TIME. CALL LIGHT IN REACH. BED LOW POSITION. NO FAMILY AT BEDSIDE AT THIS TIME.
[2019-02-22 08:48] VITALS: BP 164/89
[2019-02-22] MEDS ORDERED: GLUCOPHAGE500 MG PO (10:00)
[2019-02-22] MEDS ORDERED: SULAR34 MG PO (10:01)
[2019-02-22] MEDS ORDERED: K-TAB10 MEQ PO (10:02)
[2019-02-22] MEDS ORDERED: AMBIEN5 MG PO (10:03)
[2019-02-22] MEDS ORDERED: FLOMAX0.4 MG PO (10:03)
[2019-02-22] MEDS ORDERED: PROCARDIA XL30 MG PO (10:06)
[2019-02-22] MEDS ORDERED: GEMFIBROZIL600 MG PO (10:06)
--- NOTE | 2019-02-22 10:06 | MORECARE ---
CASE MANAGEMENT DISCHARGE SUMMARY PATIENT: ARTUR LEE UNIT: [id number] ADM DATE: 02/17/19 AGE: 68 : 50 SEX: M ROOM/BED: D.2226 AUTHOR: LEILANI,DOC PHYSICIAN: REFERRING PHYSICIAN: MINOO TRIPLETT MD DATE OF SERVICE: 02/22/19 Discharge Plan Patient Name: ARTUR LEE Facility[facility]:[place] : 1950 Planned Disposition: Home Anticipated Discharge Date: Discharge Date: Expected LOS: Initial Reviewer: [id number] Initial Review Date: 02/17/2019 Generated: 02/22/19 11:06 am Comments DCP- Discharge Planning Updated by [email or web address]: Cheryl Peraza on 02/22/19 9:[address] I called [facility] and left a message with Jessy on referral. I spoke with Tequila Rockwell, and she states she has not received clinical for SNF auth yet. CM will continue to follow and assist with discharge planning/needs. DCP- Discharge Planning Updated by [email or web address]: Cheryl Peraza on 02/19/19 11:[address] I spoke with Bettie in inpatient rehab and she recommends SNF placement. I spoke with the patient and he chooses [facility] for his first choice and [facility] for his second choice. I called pilar Cash for [facility], and clinical faxed to [phone]. Shreya states she will forward the fax to [facility]. CM will continue to follow and assist with discharge planning/needs. DCP- Discharge Planning Updated by [id number]: Cherylgiuliano Peraza on 02/17/19 3:[address] Patient Name: ARTUR LEE Admission Status: ER Accout number: [id number] Admission Date: 02-17-2019 : 1950 Admission Diagnosis: Attending: MINOO TRIPLETT Current LOS: 1 Anticipated DC Date: Planned Disposition: Home Primary Insurance: WELLCARE MEDICARE ADV Discharge Planning Comments: CM met with patient to complete initial dc planning assessment, he is alone in the room. CM educated patient on the CM role and verbal consent given by patient to complete assessment. Patient lives at [facility] at [address] He lives alone. At discharge patient plans to return and feels this is a safe discharge. CM discussed availability of home health, rehab services, and medical equipment. Patient states he has a health and social care teacher "from the [place] that comes in twice a week on and to assist with house cleaning and bathing. He states he is mainly always in his electric wheelchair. [facility] He states his sister will get the pain medicine he needs, usually [facility] medicine [facility] [place]. [facility] only uses [facility] [place] for his physician, so if home health is needed, it would need to be set up through the [place], he voices understanding. A rehab screen has been ordered, it would require preauthorization. CM will continue to follow and will assist as needed with dc plans/needs. Natural Gas Plant Supervisor: Cheryl Peraza DCPIA - Discharge Planning Initial Assessment Updated by [email or web address]: Cheryl Peraza on 02/17/19 4:35 pm * Is the patient Alert and Oriented? Yes * PCP [facility] * [place] * Preadmission Environment Home Alone * ADLs Partial Dependent * Partial ADLs (Assistance needed) Ambulation * Equipment Power Chair or Electric Scooter Walker * List name and contact numbers for known caregivers / representatives who currently or will assist patient after discharge: Wellington bee - [phone] * Verbal permission to speak to the caregivers and representatives has been obtained from the patient. Yes * Community resources currently utilized Private Duty Care * Additional services required to return to the preadmission environment? No * Can the patient safely return to the preadmission environment? Yes * Has this patient been hospitalized within the prior 30 days at any hospital? No Coverage Notice Reviewer: [id number] Jerry Peraza Notice Issued Date-Time: 02/19/2019 12:39 Notice Type: Patient Choice Letter Notice Delivered To: Patient Relationship to Patient: Self Field Pipelines Supervisor Name: Delivery Method: HAND - Hand Delivered Katherin Days: Prior Verbal Notification: Recipient Understood Notice: Yes Recipient Signature: Yes Med Rec Note Co-signed by Attending: Coverage Notice Comment: [place] [facility], [facility] Reviewer: [id number] Jerry Peraza Notice Issued Date-Time: 02/19/2019 12:50 Notice Type: Patient Choice Letter Notice Delivered To: Patient Relationship to Patient: Self Field Pipelines Supervisor Name: Delivery Method: HAND - Hand Delivered Katherin Days: Prior Verbal Notification: Recipient Understood Notice: Yes Recipient Signature: Yes Med Rec Note Co-signed by Attending: Coverage Notice Comment: [place] [facility] 1)[facility] 2) [facility] Last DP export: 02/19/19 11:59 Patient Name: ARTUR LEE Page [id number] at 1006 All edits/amendments must be made on the electronic document DICTATION DATE: 02/22/19 1006 SOLO MUSICIAN: TESFAYE 02/22/19 1006 RPT#: [id number] DC DATE: STATUS: ADM IN [facility] [address] [place] [address] END OF REPORT
[2019-02-22 10:08] LABS: ALBUMIN 2.7 g/dL (3.4-5.0); BILIRUBIN - TOTAL 0.32 mg/dL (0.2-1.3); PROTEIN - SERUM 6.9 g/dL (6.4-8.2)
[2019-02-22 13:30] VITALS: BP 116/76
--- NOTE | 2019-02-22 13:56 | NUR ---
Nutrition follow-up: Diet: ADA consistent CHO Pt reports appetite is good; now issues with meals provided. Labs reviewed' Wt: 150# RDN following.
--- NOTE | 2019-02-22 14:01 | NUR ---
OT NOTE: BED MOB WITH MIN ASSIST AND EXT TIME. PERFORMED EOB SITTING AND STATIC/DYNAMIC TRUNK STRENGTHENING ACT. SIT TO STAND WITH WALKER AND MIN ASSIST. STANDING BALANCE IS POOR. PT IS ABLE TO MAINTAIN WT BEARING PRECAUTIONS FOR L LE WHILE IN STANDING WITH UPPER BODY SUPPORT AND WALKER. JONATHON PERRY, OTR/L
--- NOTE | 2019-02-22 16:36 | MORECARE ---
CASE MANAGEMENT DISCHARGE SUMMARY PATIENT: ARTUR WHITE UNIT: [id number] ADM DATE: 02/17/19 AGE: 68 : 50 SEX: M ROOM/BED: D.2226 AUTHOR: LEILANI,DOC PHYSICIAN: REFERRING PHYSICIAN: MINOO TRIPLETT MD DATE OF SERVICE: 02/22/19 Discharge Plan Patient Name: ARTUR WHITE Facility: [facility]:[place] : 1950 Planned Disposition: Home Anticipated Discharge Date: Discharge Date: Expected LOS: Initial Reviewer: [email or web address] Initial Review Date: 02/17/2019 Generated: 02/22/19 5:36 pm Comments DCP- Discharge Planning Updated by [email or web address]: Cheryl Peraza on 02/22/19 3:[address] Jessy called from [facility] and states that she has received auth for admission to [facility], but it is too late in the day to accept today. States she will come out tomorrow and have him sign admission papers and they will accept him tomorrow. I informed Caroline Nayak. I informed the patient and he agrees with discharge planning to [facility]. He states he will inform his family. CM will continue to follow and assist with discharge planning/needs. DCP- Discharge Planning Updated by [email or web address]: Cheryl Peraza on 02/22/19 9:[address] I called Cam[facility] and left a message with Jessy on referral. I [facility] with Elham Delarosa[facility], and she states she has not received clinical for SNF auth yet. CM will continue to follow and assist with discharge planning/needs. DCP- Discharge Planning Updated by [email or web address]: Cheryl Peraza on 02/19/19 11:[address] I spoke with Bettie in inpatient rehab and she recommends SNF placement. I spoke with the patient and he chooses [facility] for his first choice and [facility] for his second choice. I called pilar Cash for [facility], and clinical faxed to [phone]. Shreya states she will forward the fax to [facility]. CM will continue to follow and assist with discharge planning/needs. DCP- Discharge Planning Updated by [email or web address]: Cheryl Peraza on 02/17/19 3:[address] Patient Name: ARTUR WHITE Admission Status: ER Accout number: [id number] Admission Date: 02-17-2019 : 1950 Admission Diagnosis: Attending: MINOO TRIPLETT Current LOS: 1 Anticipated DC Date: Planned Disposition: Home Primary Insurance: WELLCARE MEDICARE ADV Discharge Planning Comments: CM met with patient to complete initial dc planning assessment, he is alone in the room. CM educated patient on the CM role and verbal consent given by patient to complete assessment. Patient lives at [facility] at [address] He lives alone. At discharge patient plans to return and feels this is a safe discharge. CM discussed availability of home health, rehab services, and medical equipment. Patient states he has a physician locums urgent care "from the [place] that comes in twice a week on and to assist with house cleaning and bathing. He states he is mainly always in his electric wheelchair. He [facility]. He states his sister will get the pain medicine he needs, usually he gets his medicine at [facility] [place]. He only uses [facility] [place] for his physician, so if home health is needed, it would need to be set up through the [place], he voices understanding. A rehab screen has been ordered, it would require preauthorization. CM will continue to follow and will assist as needed with dc plans/needs. Metal Dresser: Cheryl Stu DCPIA - Discharge Planning Initial Assessment Updated by [id number]: Cheryl Hernandezmilagros on 02/17/19 4:35 pm * Is the patient Alert and Oriented? Yes * [facility]CP [facility] [place] [facility] * [place] * Preadmission Environment Home Alone * ADLs Partial Dependent * Partial ADLs (Assistance needed) Ambulation * Equipment Power Chair or Electric Scooter Walker * List name and contact numbers for known caregivers / representatives who currently or will assist patient after discharge: Wellington White - son - [phone] * Verbal permission to speak to the caregivers and representatives has been obtained from the patient. Yes * Community resources currently utilized Private Duty Care * Additional services required to return to the preadmission environment? No * Can the patient safely return to the preadmission environment? Yes * Has this patient been hospitalized within the prior 30 days at any hospital? No Coverage Notice Reviewer: [id number] Peraza Notice Issued Date-Time: 02/19/2019 12:39 Notice Type: Patient Choice Letter Notice Delivered To: Patient Relationship to Patient: Self Supervisor Chlorine Liquefaction Name: Delivery Method: HAND - Hand Delivered Katherin Days: Prior Verbal Notification: Recipient Understood Notice: Yes Recipient Signature: Yes Med Rec Note Co-signed by Attending: Coverage Notice Comment: [place] [facility], [facility] Reviewer: [id number] Peraza Notice Issued Date-Time: 02/19/2019 12:50 Notice Type: Patient Choice Letter Notice Delivered To: Patient Relationship to Patient: Self Supervisor Chlorine Liquefaction Name: Delivery Method: HAND - Hand Delivered Katherin Days: Prior Verbal Notification: Recipient Understood Notice: Yes Recipient Signature: Yes Med Rec Note Co-signed by Attending: Coverage Notice Comment: [place] [facility] 1)[facility] 2) [facility] Reviewer: [id number] Peraza Notice Issued Date-Time: 02/22/2019 16:33 Notice Type: IM Discharge Notice Notice Delivered To: Patient Relationship to Patient: Self Supervisor Chlorine Liquefaction Name: Delivery Method: HAND - Hand Delivered Katherin Days: Prior Verbal Notification: Recipient Understood Notice: Yes Recipient Signature: Yes Med Rec Note Co-signed by Attending: Coverage Notice Comment: IMM explained, signed, given, copy placed in MR Last DP export: 02/22/19 9:06 Patient Name: ARTUR WHITE Page [id number] at 1636 All edits/amendments must be made on the electronic document DICTATION DATE: 02/22/191635 LOG LOADER: TESFAYE 02/22/19 163 RPT#: [id number] DC DATE: STATUS: ADM IN [facility] [address] [place] [address] END OF REPORT
[2019-02-22 16:51] VITALS: BP 141/86
--- NOTE | 2019-02-22 18:18 | NUR ---
ALERT AND ORIENTED, RESTING IN BED. NO C/O PAIN. NO S/S OF ACUTE DISTRESS NOTED. CALL LIGHT IN REACH. DENIES ANY NEEDS AT THIS TIME. WILL CONTINUE TO MONITOR.
--- NOTE | 2019-02-22 19:09 | NUR ---
PATIENT RESTING IN BED WITH NO S/S OF DISTRESS. EMPTIED URINAL AND CLEARED TRAY PER PATIENT REQUEST. PATIENT DENIES OTHER NEEDS AT THIS TIME. BED IN LOWEST POSITION AND CALL LIGHT WITHIN REACH. ENCOURAGED THE PATIENT TO CALL IF HE HAS NEEDS. WILL CONTINUE TO MONITOR.
[2019-02-22 20:00] VITALS: BP 156/76
--- NOTE | 2019-02-22 20:57 | NUR ---
OT NOTE: PT COMPLETED TOILETING TASKS WITH MIN A. PT COMPLETED HAND HYGIENE WITH SET UP. PT COMPLETED EOB SITTING WITH SPV. PT COMPLETED UE AROM AXS. THANK YOU, STEFANIE GRIFFIN
[2019-02-23 04:00] VITALS: BP 183/105
[2019-02-23 06:52] LABS: BASOPHILS 0.3 % (0-2); EOSINOPHILS 4.9 % (0-7); HEMATOCRIT 38.6 % (42.0-54.0); HEMOGLOBIN 13.1 g/dL (13.5-17.5); IMMATURE GRANULOCYTES 0.6 % (0-5); LYMPHOCYTES 27.4 % (15-50); MCH 31.8 pg (26.0-34.0); MCHC 33.9 g/dL (31.0-37.0); MCV 93.7 fL (80.0-100.0); MEAN PLATELET VOLUME 10.9 fL (7.4-10.4); NEUTROPHILS 59.8 % (40-80); PLATELET COUNT 276 10x3/uL (130-400); RBC 4.12 10x6/uL (4.20-6.10); RDW 13.9 % (11.5-14.5); WBC 7.7 10x3/uL (4.8-10.8)
--- NOTE | 2019-02-23 07:00 | NUR ---
ALERT AND ORIENTED, RESTING IN BED. NO C/O PAIN. NO S/S OF ACUTE DISTRESS NOTED. IV TO LEFT FOREARM, SL. SITE PATENT WITHOUT REDNESS OR SWELLING. DRESSING TO LEFT FOOT, TOE AMPUTATION. DRESSING C/D/I. DENIES ANY NEEDS AT THIS TIME. CALL LIGHT IN REACH. WILL CONTINUE TO MONITOR.
[2019-02-23 07:01] LABS: ANION GAP 16.2 mmol/L (8-16); CALCIUM 9.2 mg/dL (8.5-10.1); CARBON DIOXIDE 22.5 mmol/L (21.0-32.0); CREATININE - SERUM 1.3 mg/dL (0.6-1.3); POTASSIUM - SERUM 3.7 mmol/L (3.5-5.1)
[2019-02-23 08:22] VITALS: BP 153/78
[2019-02-23] MEDS ORDERED: LIBRIUM5 MG PO (09:58)
[2019-02-23] MEDS ORDERED: NICODERM C1 PATCH .1 TRANSDERM (09:58)
[2019-02-23] MEDS ORDERED: FLUTICASONE PRO16 GM NASAL (09:59)
[2019-02-23] MEDS ORDERED: PROTONIX40 MG PO (09:59)
[2019-02-23] MEDS ORDERED: FLORAJEN3 CAPS460 MG PO (09:59)
[2019-02-23] MEDS ORDERED: SULFAMETHOXAZOL1 TA2 PO (10:00)
--- NOTE | 2019-02-23 11:13 | MORECARE ---
CASE MANAGEMENT DISCHARGE SUMMARY PATIENT: ARTUR WHITE UNIT: [id number] ADM DATE: 02/17/19 AGE: 68 : 50 SEX: M ROOM/BED: D.2226 AUTHOR: LEILANIDOC PHYSICIAN: REFERRING PHYSICIAN: MINOO TRIPLETT MD DATE OF SERVICE: 02/23/19 Discharge Plan Patient Name: ARTUR WHITE Facility: [facility]:[place] : 1950 Planned Disposition: Home Anticipated Discharge Date: Discharge Date: Expected LOS: Initial Reviewer: [email or web address] Initial Review Date: 02/17/2019 Generated: 02/23/19 12:13 pm Comments DCP- Discharge Planning Updated by [email or web address]: Cheryl Peraza on 02/23/19 10:[address] Patient Name: ARTUR WHITE Encounter No: [id number] : 1950 Primary Insurance: WELLCARE MEDICARE ADV Anticipated DC Date: Planned Disposition: Home External Planned Provider: : DCP follow-up note: Patient and family in agreement with discharge plan. No changes to plan. He is discharging to [facility] to a skilled (Medicare) bed. He states he will notify his family. I called [facility] for a hot die picker time and left a message with Jessy. DC orders/Mar faxed to [facility]. Case management will follow and assist as needed. Cheryl Peraza DCP- Discharge Planning Updated by [id number]: Cheryl Stu on 02/22/19 3:[address] Jessy called from [facility] and states that she has received auth for admission to skilled, but it is too late in the day to accept today. States she will come out tomorrow and have him sign admission papers and they will accept him tomorrow. I informed Caroline Nayak. I informed the patient and he agrees with discharge planning to [facility]. He states he will inform his family. CM will continue to follow and assist with discharge planning/needs. DCP- Discharge Planning Updated by [email or web address]: Cheryl Peraza on 02/22/19 9:[address] I called [facility] and left a message with Jessy on referral. I spoke with Elham [place], Tequila Jon, and she states she has not received clinical for SNF auth yet. CM will continue to follow and assist with discharge planning/needs. DCP- Discharge Planning Updated by [id number]: Cheryl Peraza on 02/19/19 11:[address] I spoke with Bettie in inpatient rehab and she recommends SNF placement. I spoke with the patient and he chooses [facility] for his first choice and [facility] for his second choice. I called pilar Cash for [facility], and clinical faxed to [phone]. Shreya states she will forward the fax to [facility] SNF. CM will continue to follow and assist with discharge planning/needs. DCP- Discharge Planning Updated by [id number]: Cheryl Peraza on 02/17/19 3:[address] Patient Name: ARTUR WHITE Admission Status: ER Accout number: [id number] Admission Date: 02-17-2019 : 1950 Admission Diagnosis: Attending: MINOO TRIPLETT Current LOS: 1 Anticipated DC Date: Planned Disposition: Home Primary Insurance: WELLCARE MEDICARE ADV Discharge Planning Comments: CM met with patient to complete initial dc planning assessment, he is alone in the room. CM educated patient on the CM role and verbal consent given by patient to complete assessment. Patient lives at [facility] at [address] He lives alone. At discharge patient plans to return and feels this is a safe discharge. CM discussed availability of home health, rehab services, and medical equipment. Patient states he has a director of health care marketing [facility] that comes [place] a week on and to assist with house cleaning and bathing. He states he is mainly always in his electric wheelchair. He states he does not [facility] to [facility] to [facility]. He states his sister will get the pain medicine he needs, [facility], so if home health is needed, it would need to be set up through [facility], he voices understanding. A rehab screen has been ordered, it would require preauthorization. CM will continue to follow and will assist as needed with dc plans/needs. Geriatric Physician: Cheryl Peraza DCPIA - Discharge Planning Initial Assessment Updated by [email or web address]: Cheryl Peraaz on 02/17/19 4:35 pm * Is the patient Alert and Oriented? Yes * [facility]CP [facility] * [facility] * Preadmission Environment Home Alone * ADLs Partial Dependent * Partial ADLs (Assistance needed) Ambulation * Equipment Power Chair or Electric Scooter Walker * List name and contact numbers for known caregivers / representatives who currently or will assist patient after discharge: Wellington White - [facility] - [phone] * Verbal permission to speak to the caregivers and representatives has been obtained from the patient. Yes * Community resources currently utilized Private Duty Care * Additional services required to return to the preadmission environment? No * Can the patient safely return to the preadmission environment? Yes * Has this patient been hospitalized within the prior 30 days at any hospital? No Coverage Notice Reviewer: [id number] Peraza Notice Issued Date-Time: 02/19/2019 12:39 Notice Type: Patient Choice Letter Notice Delivered To: Patient Relationship to Patient: Self Bus And Rail Operator Name: Delivery Method: HAND - Hand Delivered Katherin Days: Prior Verbal Notification: Recipient Understood Notice: Yes Recipient Signature: Yes Med Rec Note Co-signed by Attending: Coverage Notice Comment: [place] [facility] FIRST, [facility] Reviewer: [id number] Jerry Peraza Notice Issued Date-Time: 02/19/2019 12:50 Notice Type: Patient Choice Letter Notice Delivered To: Patient Relationship to Patient: Self Bus And Rail Operator Name: Delivery Method: HAND - Hand Delivered Katherin Days: Prior Verbal Notification: Recipient Understood Notice: Yes Recipient Signature: Yes Med Rec Note Co-signed by Attending: Coverage Notice Comment: [place] for 1)[facility] 2) [facility] Reviewer: [id number] Jerry Peraza Notice Issued Date-Time: 02/22/2019 16:33 Notice Type: IM Discharge Notice Notice Delivered To: Patient Relationship to Patient: Self Bus And Rail Operator Name: Delivery Method: HAND - Hand Delivered Katherin Days: Prior Verbal Notification: Recipient Understood Notice: Yes Recipient Signature: Yes Med Rec Note Co-signed by Attending: Coverage Notice Comment: IMM explained, signed, given, copy placed in MR Last DP export: 02/22/19 3:36 Patient Name: ARTUR WHITE Page [id number] at 1113 All edits/amendments must be made on the electronic document DICTATION DATE: 02/23/191112 ELEMENTARY EDUCATOR: TESFAYE 02/23/191112 RPT#: [id number] DC DATE: STATUS: ADM IN [facility] [address] [place] [address] END OF REPORT
[2019-02-23] MEDS ORDERED: ACETAMINOPHEN325 MG PO (11:43)
[2019-02-23 12:37] VITALS: BP 129/89
--- NOTE | 2019-02-23 13:57 | NUR ---
DISCHARGED PATIENT TO [facility], VIA WHEELCHAIR ACCOMPANIED BY FACILITY STAFF. CALLED REPORT TO [facility] AT [facility]. DISCONTINUED IV, CATHETER TIP INTACT. WENT OVER DISCHARGE INSTRUCTIONS WITH PATIENT, VERBALIZED UNDERSTANDING. CHANGED DRESSING TO LEFT FOOT. REMOVED PREVIOUS DRESSING, APPLIED DRY 4X4 TO SECOND TOE AMPUTATION, AND WRAPPED IN KERLEX PER PHYSICIAN ORDERS. DENIES ANYTHING FURTHER.
--- NOTE | 2019-02-26 15:46 | MORECARE ---
CASE MANAGEMENT DISCHARGE SUMMARY PATIENT: ARTUR WHITE UNIT: [id number] ADM DATE: 02/17/19 AGE: 68 : 50 SEX: M ROOM/BED: D.2226 AUTHOR: LEILANIDOC PHYSICIAN: REFERRING PHYSICIAN: MINOO TRIPLETT MD DATE OF SERVICE: 02/26/19 Discharge Plan Patient Name: ARTUR WHITE Facility: [facility]:[place] : 1950 Planned Disposition: Home Anticipated Discharge Date: Discharge Date: 02/23/2019 Expected LOS: 0 Initial Reviewer: [email or web address] Initial Review Date: 02/17/2019 Generated: 02/26/19 4:45 pm Comments DCP- Discharge Planning Updated by [email or web address]: Cheryl Peraza on 02/23/19 10:[address] Patient Name: ARTUR WHITE Encounter No: [id number] : 1950 Primary Insurance[facility] Anticipated DC Date: Planned Disposition: Home External Planned Provider: : DCP follow-up note: Patient and family in agreement with discharge plan. No changes to plan. He is discharging to [facility] to a skilled (Medicare) bed. He states he will notify his family. I called [facility] for a draft roller picker time and left a message with Jessy. DC orders/Mar faxed to [facility]. Case management will follow and assist as needed. Cheryl Peraza DCP- Discharge Planning Updated by [email or web address]: Cheryl Peraza on 02/22/19 3:[address] Jessy called from [facility] and states that she has received auth for admission to skilled, but it is too late in the day to accept today. States she will come out tomorrow and have him sign admission papers and they will accept him tomorrow. I informed Caroline [place]. I informed the patient and he agrees with discharge planning to [facility]. He states he will inform his family. CM will continue to follow and assist with discharge planning/needs. DCP- Discharge Planning Updated by [id number]: Cheryl Peraza on 02/22/19 9:[address] I called [facility] and left a message with Jessy on referral. I spoke with Tequila Rockwellx, and she states she has not received clinical for SNF auth yet. CM will continue to follow and assist with discharge planning/needs. DCP- Discharge Planning Updated by [id number]: Cheryl Peraza on 02/19/19 11:[address] I spoke with Bettie in inpatient rehab and she recommends SNF placement. I spoke with the patient and he chooses [facility] for his first choice and [facility] for his second choice. I called pilar Cash for [facility], and clinical faxed to [phone]. Shreya states she will forward the fax to [facility] SNF. CM will continue to follow and assist with discharge planning/needs. DCP- Discharge Planning Updated by [email or web address]: Cheryl Peraza on 02/17/19 3:[address] Patient Name: ARTUR WHITE Admission Status: ER Accout number: [id number] Admission Date: 02-17-2019 : 1950 Admission Diagnosis: Attending: MINOO TRIPLETT Current LOS: 1 Anticipated DC Date: Planned Disposition: Home Primary Insurance: [employer] ADV Discharge Planning Comments: CM met with patient to complete initial dc planning assessment, he is alone in the room. CM educated patient on the CM role and verbal consent given by patient to complete assessment. Patient lives at [facility] at [address] He lives alone. At discharge patient plans to return and feels this is a safe discharge. CM discussed availability of home health, rehab services, and medical equipment. Patient states he has a adult caregiver "from the [place] that comes in twice a week on and to assist with house cleaning and bathing. He states he is mainly always in his electric wheelchair. He [facility]. He states his sister will get the pain medicine he needs, [facility], so if home health is needed, it would need to be set up through the [facility], he voices understanding. A rehab screen has been ordered, it would require preauthorization. CM will continue to follow and will assist as needed with dc plans/needs. Online Producer: Cheryl Peraza DCPIA - Discharge Planning Initial Assessment Updated by [email or web address]: Cheryl Peraza on 02/17/19 4:35 pm * Is the patient Alert and Oriented? Yes * PCP [facility] * Pharmacy [place] * Preadmission Environment Home Alone * ADLs Partial Dependent * Partial ADLs (Assistance needed) Ambulation * Equipment Power Chair or Electric Scooter Walker * List name and contact numbers for known caregivers / representatives who currently or will assist patient after discharge: Wellington White - [facility] - [phone] * Verbal permission to speak to the caregivers and representatives has been obtained from the patient. Yes * Community resources currently utilized Private Duty Care * Additional services required to return to the preadmission environment? No * Can the patient safely return to the preadmission environment? Yes * Has this patient been hospitalized within the prior 30 days at any hospital? No Coverage Notice Reviewer: [id number] Peraza Notice Issued Date-Time: 02/19/2019 12:39 Notice Type: Patient Choice Letter Notice Delivered To: Patient Relationship to Patient: Self Electrocardiogram Technician Name: Delivery Method: HAND - Hand Delivered Katherin Days: Prior Verbal Notification: Recipient Understood Notice: Yes Recipient Signature: Yes Med Rec Note Co-signed by Attending: Coverage Notice Comment: [place] [facility] FIRST, [facility] SECOND Reviewer: [id number] Peraza Notice Issued Date-Time: 02/19/2019 12:50 Notice Type: Patient Choice Letter Notice Delivered To: Patient Relationship to Patient: Self Electrocardiogram Technician Name: Delivery Method: HAND - Hand Delivered Katherin Days: Prior Verbal Notification: Recipient Understood Notice: Yes Recipient Signature: Yes Med Rec Note Co-signed by Attending: Coverage Notice Comment: [place] for 1)[facility] 2) [facility] Reviewer: [id number] Peraza Notice Issued Date-Time: 02/22/2019 16:33 Notice Type: IM Discharge Notice Notice Delivered To: Patient Relationship to Patient: Self Electrocardiogram Technician Name: Delivery Method: HAND - Hand Delivered Katherin Days: Prior Verbal Notification: Recipient Understood Notice: Yes Recipient Signature: Yes Med Rec Note Co-signed by Attending: Coverage Notice Comment: IMM explained, signed, given, copy placed in MR Last DP export: 02/23/19 10:13 Patient Name: ARTUR WHITE Page [phone] at 1546 All edits/amendments must be made on the electronic document DICTATION DATE: 02/26/19 1545 SCIENTIFIC PROGRAMMER: TESFAYE 02/26/19 1545 RPT#: [id number] DC DATE:02/23/19 STATUS: DIS IN [facility] [address] [place] [address] END OF REPORT
== END 2019-02-23 14:00 | DRG 617 ==
LOC: D.ER 21:41 → D.MS 02-17 00:38
PROVIDERS: Family Medicine; Orthopaedic Surgery; ADMIT Internal Medicine Nephrology; ATTEND Internal Medicine Nephrology
PROC: 0Y6S0Z0 Detachment at Left 2nd Toe, Complete, Open Approach (ICD-10-PCS; 2019-02-17)
PROC: 0SWBXJZ Revision of Synthetic Substitute in Left Hip Joint, External Approach (ICD-10-PCS; principal; 2019-02-17 13:15)
DX: E11.69 Type 2 diabetes mellitus with other specified complication (principal); T84.021A Dislocation of internal left hip prosthesis, initial encounter; S22.42XA Multiple fractures of ribs, left side, initial encounter for closed fracture; F17.213 Nicotine dependence, cigarettes, with withdrawal; L03.116 Cellulitis of left lower limb; N39.0 Urinary tract infection, site not specified; M86.8X7 Other osteomyelitis, ankle and foot; N17.9 Acute kidney failure, unspecified; W19.XXXA Unspecified fall, initial encounter; S91.109A Unspecified open wound of unspecified toe(s) without damage to nail, initial encounter; E11.51 Type 2 diabetes mellitus with diabetic peripheral angiopathy without gangrene; I10 Essential (primary) hypertension; S92.502B Displaced unspecified fracture of left lesser toe(s), initial encounter for open fracture; D64.9 Anemia, unspecified; B96.20 Unspecified Escherichia coli [E. coli] as the cause of diseases classified elsewhere; B95.62 Methicillin resistant Staphylococcus aureus infection as the cause of diseases classified elsewhere

== ENCOUNTER 2019-03-16 10:01 | Inpatient (IN) | payer MEDICARE ==
[~2019-03-16] VITALS: Ht 172.7 cm; Wt 72.6 kg
[2019-03-16] VITALS (8 sets, daily range): BP systolic 127–191; BP diastolic 67–122; BMI 24.3
[~2019-03-16 10:01] MED LIST changes: +ACETAMINOPHEN325 MG PO; +AMBIEN5 MG PO; +BP PILL; +DIABETIC PILL; +FLUTICASONE PRO16 GM NASAL; +GEMFIBROZIL600 MG PO; +GLUCOPHAGE500 MG PO; +K-TAB10 MEQ PO; +LIBRIUM5 MG PO; +NICODERM C1 PATCH .1 TRANSDERM; +PROCARDIA XL30 MG PO; +PROTONIX40 MG PO; +SULAR34 MG PO; +SULFAMETHOXAZOL1 TA2 PO; +[UNRECOGNIZED DRUG - REMARK]
--- NOTE | 2019-03-16 10:21 | NUR ---
XR COMPLETED AT
--- NOTE | 2019-03-16 11:18 | NUR ---
DR MITCHELL AND ANESTHESIA AT BS. DR JASON AT BS REPORTS HOLD OFF ON HYDRALAZINE UNTIL AFTER PROCEDURE
--- NOTE | 2019-03-16 11:18 | NUR ---
TIME OUT CALLED AND MODERATE SEDATION BEGAN: SEE MODERATE SEDATION PAPERWORK
--- NOTE | 2019-03-16 11:35 | NUR ---
PT AWAKE, ALERT AND ORIENTED. VSS. PT TALKING AND DENIES PAIN
--- NOTE | 2019-03-16 14:23 | NUR ---
ASSISTED PT WITH URINAL.
--- NOTE | 2019-03-16 15:33 | NUR ---
REPORT CALLED TO AMADOU HUDSON
--- NOTE | 2019-03-16 15:40 | NUR ---
TRANSPORTED TO ROOM #2217, CONDITION STABLE
--- NOTE | 2019-03-16 16:00 | NUR ---
TO ROOM 2217 FROM ER VIA STRETCHER. ASSESSMENT PER FLOW SHEET. DARK AREAS NOTED TO LEFT HEEL AND HEELWAS BRIDGED ON PILOW. LEFT FOOT SECOND TOE POST AMP WITH SUTURE IN PLACE AND SCAB NOTED. MULITIPLE SCABS ON TOP OF LEFT FOOT. SCAB TO RIGHT OUTER ANKLE.SKIN TEAR TO RIGHT ELBOW. SOME REDNESS NOTED TO RIGHT HEEL. ABDUCTOR PILLOW IN PLACE. FALL PREVENTION INITIATED WITH BED ALARM.
--- NOTE | 2019-03-16 17:14 | MORECARE ---
CASE MANAGEMENT DISCHARGE SUMMARY PATIENT: ARTUR LEE UNIT: [id number] ADM DATE: 03/16/19 AGE: 68 : 50 SEX: M ROOM/BED: D.2217 AUTHOR: LEILANIDOC PHYSICIAN: REFERRING PHYSICIAN: DINO CALZADA MD DATE OF SERVICE: 03/16/19 Discharge Plan Patient Name: ARTUR LEE Facility: [facility]:[place] : 1950 Planned Disposition: Home Anticipated Discharge Date: 03/17/19 Discharge Date: Expected LOS: 1 Initial Reviewer: [email or web address] Initial Review Date: 03/16/2019 Generated: 03/16/19 6:14 pm DCPIA - Discharge Planning Initial Assessment Updated by [email or web address]: Juana Quintana on 03/16/19 5:13 pm * Is the patient Alert and Oriented? Yes * How many steps to enter\exit or inside your home? Elevator * PCP ID MD * Pharmacy ID Pharmacy * Preadmission Environment Home Alone * ADLs Partial Dependent * Partial ADLs (Assistance needed) Ambulation * Equipment Hospital Bed Power Chair or Electric Scooter * Other Equipment Transfer Chair * List name and contact numbers for known caregivers / representatives who currently or will assist patient after discharge: Carlos Manuel Regan - [place] - [phone] Rabia Schmidt [facility] - [phone] * Verbal permission to speak to the caregivers and representatives has been obtained from the patient. Yes * Community resources currently utilized Other * Please name any agencies selected above. [facility] sends someone once a month. Not sure if this is home health. * Additional services required to return to the preadmission environment? Yes * Can the patient safely return to the preadmission environment? Yes Coverage Notice Reviewer: [id number] - Juana Quintana Notice Issued Date-Time: 03/16/2019 15:05 Notice Type: Medicare Outpatient Observation Notice Notice Delivered To: Patient Relationship to Patient: Mine Utility Operator Name: Delivery Method: HAND - Hand Delivered Katherin Days: Prior Verbal Notification: Recipient Understood Notice: Recipient Signature: Med Rec Note Co-signed by Attending: Coverage Notice Comment: ZAMAN delivered, explained, signed by the patient, and placed in his chart. Signed form also left with patient. Juana Quintana RN , CCM Patient Name: ARTUR LEE Page [phone] at 1714 All edits/amendments must be made on the electronic document DICTATION DATE: 03/16/191713 GRADUATE TEACHING ASSISTANT: TESFAYE 03/16/191713 RPT#: [id number] DC DATE: STATUS: ADM IN [facility] [address] [place] [address] END OF REPORT
--- NOTE | 2019-03-16 17:35 | MORECARE ---
CASE MANAGEMENT DISCHARGE SUMMARY PATIENT: ARTUR LEE UNIT: [id number] ADM DATE: 03/16/19 AGE: 68 : 50 SEX: M ROOM/BED: D.2217 AUTHOR: LEILANI,DOC PHYSICIAN: REFERRING PHYSICIAN: DINO CALZADA MD DATE OF SERVICE: 03/16/19 Discharge Plan Patient Name: ARTUR LEE Facility: [facility]:[place] : 1950 Planned Disposition: Home Anticipated Discharge Date: 03/17/19 Discharge Date: Expected LOS: 1 Initial Reviewer: [email or web address] Initial Review Date: 03/16/2019 Generated: 03/16/19 6:35 pm Comments DCP- Discharge Planning Updated by [email or web address]: Juana Quintana on 03/16/19 4:[address] DC PLAN: Return home alone - ANTICIPATED DC NEEDS: home health CM met with patient and his friend, Carlos Manuel Regan to complete initial dc planning assessment. CM educated patient on the CM role and verbal consent given by patient to complete assessment. CM verified patient's address, phone number, and emergency contact phone numbers. Patient lives at home alone and reports he is independent in his care at home. Jass is shaking his head NO when patient is saying his independent. CM questioned Jass as to why he was shaking his head and he stated for the last month he has been struggling. He was placed in [facility] and he "ESCAPED" from there. Cm asked patient about this and he said "yes, he was ready to go home so he left". At discharge patient plans to return home and feels this is a safe discharge. Jass disagrees that he needs to go home. CM discussed availability of home health, rehab services, and medical equipment. [facility] stated [facility] to [facility]. He is not sure this is home health or what. Patient denied known discharge needs at this time. Patient may need home health at dc if the [place] is not providing this service. Transportation provider at discharge will be either Jass or his sister. CM will continue to follow and will assist as needed with dc plans/needs. Juana Quintana RN, [facility] DCPIA - Discharge Planning Initial Assessment Updated by [id number]: Juana Quintana on 03/16/19 5:13 pm * Is the patient Alert and Oriented? Yes * How many steps to enter\\exit or inside your home? Elevator * PCP [place] * Pharmacy [place] [facility] * Preadmission Environment Home Alone * ADLs Partial Dependent * Partial ADLs (Assistance needed) Ambulation * Equipment Hospital Bed Power Chair or Electric Scooter * Other Equipment Transfer Chair * List name and contact numbers for known caregivers / representatives who currently or will assist patient after discharge: Carlos Manuel Regan - jose rafael - [phone] Rabia lo - [phone] * Verbal permission to speak to the caregivers and representatives has been obtained from the patient. Yes * Community resources currently utilized Other * Please name any agencies selected above. [place] sends someone once a month. Not sure if this is home health. * Additional services required to return to the preadmission environment? Yes * Can the patient safely return to the preadmission environment? Yes Coverage Notice Reviewer: [id number] - Juana Quintana Notice Issued Date-Time: 03/16/2019 15:05 Notice Type: Medicare Outpatient Observation Notice Notice Delivered To: Patient Relationship to Patient: Sanitary Aide Name: Delivery Method: HAND - Hand Delivered Katherin Days: Prior Verbal Notification: Recipient Understood Notice: Recipient Signature: Med Rec Note Co-signed by Attending: Coverage Notice Comment: ZAMAN delivered, explained, signed by the patient, and placed in his chart. Signed form also left with patient. Juana Quintana RN , [facility] Last DP export: 03/16/19 4:14 Patient Name: ARTUR LEE Page [phone] at 1735 All edits/amendments must be made on the electronic document DICTATION DATE: 03/16/191734 MILL OILER: TESFAYE 03/16/191734 RPT#: [id number] DC DATE: STATUS: ADM IN [facility] [address] [place] [address] END OF REPORT
[2019-03-16 17:49] LABS: BASOPHILS 0.2 % (0-2); EOSINOPHILS 4.4 % (0-7); HEMATOCRIT 35.5 % (42.0-54.0); HEMOGLOBIN 11.8 g/dL (13.5-17.5); IMMATURE GRANULOCYTES 0.1 % (0-5); MCH 32.2 pg (26.0-34.0); MCHC 33.2 g/dL (31.0-37.0); MEAN PLATELET VOLUME 9.7 fL (7.4-10.4); NEUTROPHILS 82.3 % (40-80); PLATELET COUNT 257 10x3/uL (130-400); RBC 3.66 10x6/uL (4.20-6.10); RDW 14.5 % (11.5-14.5)
[2019-03-16 17:56] LABS: APTT 35.6 SECONDS (22.8-39.4)
[2019-03-16 17:57] LABS: INR 1.17 (0.85-1.17); PROTIME 14.4 SECONDS (11.6-15.0)
[2019-03-16 18:04] LABS: ALBUMIN 2.9 g/dL (3.4-5.0); ANION GAP 15.2 mmol/L (8-16); BILIRUBIN - TOTAL 0.36 mg/dL (0.2-1.3); CALCIUM 8.8 mg/dL (8.5-10.1); CARBON DIOXIDE 24.7 mmol/L (21.0-32.0); CREATININE - SERUM 1.6 mg/dL (0.6-1.3); MAGNESIUM - SERUM 1.9 mg/dL (1.8-2.4); POTASSIUM - SERUM 3.9 mmol/L (3.5-5.1); PROTEIN - SERUM 7.4 g/dL (6.4-8.2)
--- NOTE | 2019-03-17 02:31 | NUR ---
PT RESTING IN BED. EYES CLOSED. NO SIGNS OF DISTRESS. BREATHING EVEN AND UNLABORED. IV SITE LT FA DRESSING CLEAN DRY AND INTACT. NO SIGNS OF INFECTION. BOWEL SOUNDS ACTIVE. LUNG SOUNDS CLEAR. ABDUCTION PILLOW PRESENT. LT FOOT SCABS AND SORES 2ND TOE AMPUTATED. LT AND RT HEEL REDDNESS. WILL CONTINUE PLAN OF CARE. CALL LIGHT IN REACH. BED LOWERED AND LOCKED. BED RAILS UPX2.
--- NOTE | 2019-03-17 04:24 | NUR ---
I have reviewed this patient and I concur with the Shift Assessment completed by the Licensed Practical Nurse today this shift.
[2019-03-17 04:30] VITALS: BP 102/58
[2019-03-17 06:23] LABS: BASOPHILS 0.1 % (0-2); EOSINOPHILS 0.1 % (0-7); IMMATURE GRANULOCYTES 0.2 % (0-5); LYMPHOCYTES 4.9 % (15-50); MCH 31.5 pg (26.0-34.0); MCHC 32.3 g/dL (31.0-37.0); MCV 97.8 fL (80.0-100.0); MONOCYTES 5.9 % (2-11); NEUTROPHILS 88.8 % (40-80); PLATELET COUNT 253 10x3/uL (130-400); RBC 3.17 10x6/uL (4.20-6.10)
[2019-03-17 06:40] LABS: ALBUMIN 2.7 g/dL (3.4-5.0); ANION GAP 17.5 mmol/L (8-16); BILIRUBIN - TOTAL 0.54 mg/dL (0.2-1.3); CALCIUM 8.7 mg/dL (8.5-10.1); CARBON DIOXIDE 19.7 mmol/L (21.0-32.0); MAGNESIUM - SERUM 1.7 mg/dL (1.8-2.4); POTASSIUM - SERUM 4.2 mmol/L (3.5-5.1)
[2019-03-17 06:43] LABS: CREATININE - SERUM 2.2 mg/dL (0.6-1.3)
--- NOTE | 2019-03-17 06:49 | PRO ---
PATIENT:ARTUR WHITE MEDICAL RECORD: [id number] : [birth year] LOCATION:[facility] ADMISSION DATE: 03/16/19 PROCEDURE PERFORMED BY: SHANE MITCHELL DO DATE OF PROCEDURE: 03/16/2019 Procedure was performed in the Emergency Room with light sedation. PROCEDURE PERFORMED: Left hip reduction closed. INDICATIONS: Mr. White is a 68-year-old male, who dislocated his left hip. 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 He was brought in by EMS. He was informed of the risk including fracture, unable to reduce it, and need for further surgery, and he signed the consent. SURGEON: Shane Mitchell DO. I was assisted by Adam Fuentes, the ER physician and Benoit Chong CRNA. DESCRIPTION OF PROCEDURE: He was given propofol and then the reduction was done. X-ray came in and confirmed on x-ray. He was then placed in abductor pillow and awakened. He will be admitted to medicine for observation and get up with physical therapy and abductor brace, ensure that it does not dislocate again and he will follow up as an outpatient. TRANSINT:[id number] Voice Confirmation ID: [id number] DOCUMENT ID: [id number] SHANE MITCHELL DO at 0649 CC: [id number] DICTATION DATE: 03/16/19 1507 CAKE WINDER: 03/17/19 0513 ADM IN [facility] [address] [place] [address]
[2019-03-17 07:01] LABS: WBC 16.1 10x3/uL (4.8-10.8)
--- NOTE | 2019-03-17 08:30 | NUR ---
URINE SENT TO LAB ORDERED.
[2019-03-17 09:00] VITALS: BP 99/50
[2019-03-17 09:40] LABS: APPEARANCE CLOUDY (CLEAR); BACTERIA MANY /hpf (NEGATIVE); BILIRUBIN NEGATIVE (NEGATIVE); COLOR YELLOW (YELLOW); EPITHELIAL CELLS RARE /hpf (0-5); GLUCOSE NEGATIVE (NEGATIVE); KETONE NEGATIVE (NEGATIVE); MUCUS <1+ /lpf (NONE SEEN); NITRITE NEGATIVE (NEGATIVE); PROTEIN 2+ mg/dL (NEGATIVE); RED CELLS - URINE OCC /hpf (0-5); SPECIFIC GRAVITY 1.015 (1.005-1.020); WHITE CELLS - URINE >50 /hpf (NEGATIVE)
[2019-03-17 12:12] VITALS: BMI 24.3
--- NOTE | 2019-03-17 12:45 | NUR ---
PATIENT IN BED WITH NO COMPLAINTS OR SIGNS OF DISTRESS. IV INTACT. CALL LIGHT WITHIN REACH.
[2019-03-17 14:08] VITALS: BP 102/53
[2019-03-17 16:19] VITALS: BP 115/63
--- NOTE | 2019-03-17 18:45 | NUR ---
PATIENT IN BED WITH NO COMPLAINTS OR SIGNS OF DISTRESS. PATIENT IN BED WITH IV INTACT. CALL LIGHT WITHIN REACH.
[2019-03-17 20:00] VITALS: BP 93/49
--- NOTE | 2019-03-17 21:00 | NUR ---
A/O BUT SLOW TO RESPOND. NO S/S OF ACUTE DISTRESS. IV TO THE LT FOREARM WITH NO REDNESS OR SWELLING NOTED. BLADDER SCAN SHOWED 125ML. WILL CONTINUE TO MONITOR OUTPUT. ABDUCTION PILLOW IN PLACE. LT LEG WARM AND PULSE NOTED. DENIES NO NEEDS AT THIS TIME. CONTINUE PLAN OF CARE.
[2019-03-18] VITALS: BP 106/55
--- NOTE | 2019-03-18 04:50 | NUR ---
BLADDER SCAN 90ML. BED BATH GIVEN. WILL CONTINUE TO MONITOR.
[2019-03-18 06:30] LABS: BASOPHILS 0.2 % (0-2); EOSINOPHILS 3.4 % (0-7); HEMOGLOBIN 8.1 g/dL (13.5-17.5); IMMATURE GRANULOCYTES 0.3 % (0-5); MCH 31.6 pg (26.0-34.0); MCHC 32.9 g/dL (31.0-37.0); MCV 96.1 fL (80.0-100.0); MEAN PLATELET VOLUME 9.9 fL (7.4-10.4); MONOCYTES 6.7 % (2-11); NEUTROPHILS 82.4 % (40-80); PLATELET COUNT 223 10x3/uL (130-400); RBC 2.56 10x6/uL (4.20-6.10); RDW 14.7 % (11.5-14.5)
[2019-03-18 06:35] LABS: HEMATOCRIT 24.6 % (42.0-54.0); WBC 11.7 10x3/uL (4.8-10.8)
[2019-03-18 06:50] LABS: ALBUMIN 2.4 g/dL (3.4-5.0); ANION GAP 16.4 mmol/L (8-16); BILIRUBIN - TOTAL 0.48 mg/dL (0.2-1.3); CALCIUM 8.7 mg/dL (8.5-10.1); CARBON DIOXIDE 22.6 mmol/L (21.0-32.0); CREATININE - SERUM 2.1 mg/dL (0.6-1.3); MAGNESIUM - SERUM 1.8 mg/dL (1.8-2.4); PROTEIN - SERUM 6.8 g/dL (6.4-8.2)
--- NOTE | 2019-03-18 07:47 | NUR ---
ALERT WITH CONFUSION. LUNGS CLEAR BILATERALLY. HEART SOUNDS S1 AND S2 HEARD IN ALL [place]. BOWEL SOUNDS ACTIVE X 4. SKIN INTACT WITHOUT REDNESS. IV TO LFA PATENT WITHOUT REDNESS. O2 IN PLACE AT 2L. ABDUCTION PILLOW IN PLACE FOR LEFT HIP DISLOCATION. DENIES NEEDS. BED LOW. FALL PRECAUTIONS IN PLACE. CALL [place] AND PERSONAL ITEMS IN REACH. WILL CONTINUE TO MONITOR.
[2019-03-18 08:42] VITALS: BP 111/54
[2019-03-18 13:23] VITALS: BP 107/61
--- NOTE | 2019-03-18 14:51 | NUR ---
RESTING IN BED. DENIES NEEDS. WILL CONTINUE TO MONITOR.
--- NOTE | 2019-03-18 15:30 | NUR ---
BRACE IN PLACE TO LEFT HIP.
[2019-03-18 16:45] VITALS: BP 110/63
[2019-03-18 18:00] LABS: HEMATOCRIT 27.7 % (42.0-54.0)
[2019-03-18 18:22] LABS: % SATURATION 11 % (15-55); IRON 19 ug/dl (35-150); TOTAL IRON BIND CAPACITY 165 ug/dl (260-445); UNSAT IRON BIND CAPACITY 146 ug/dl (150-375)
--- NOTE | 2019-03-18 18:50 | NUR ---
RESTING IN BED. DENIES NEEDS. BED LOW. FALL PRECAUTIONS IN PLACE. CALL [place] AND PERSONAL ITEMS IN REACH.
--- NOTE | 2019-03-18 19:50 | NUR ---
LYING IN BED. ALERT AND ORIENTED X4. RESP EVEN AND NONLABORED. O2 @ 2L/NC. RATES ABD PAIN 8. BRUISES NOTED TO BUE. LT 2ND TOE IS AMPUTATED WITH SUTURES NOTED. LT HIP BRACE IN USE. PEDAL PULSE WEAK IN LT FOOT. NS @ 50 MLHR INFUSING IN LT HAND. REFUSES SCDS. MEDICATED WITH NORCO FOR C/O PAIN. CL IN REACH.
[2019-03-18 20:00] VITALS: BP 140/70
[2019-03-19 01:02] VITALS: BP 133/68
[2019-03-19 05:08] VITALS: BP 98/56
[2019-03-19 07:25] LABS: ALBUMIN 2.3 g/dL (3.4-5.0); ANION GAP 15.2 mmol/L (8-16); BILIRUBIN - TOTAL 0.37 mg/dL (0.2-1.3); CALCIUM 8.9 mg/dL (8.5-10.1); CARBON DIOXIDE 22.4 mmol/L (21.0-32.0); CREATININE - SERUM 2.1 mg/dL (0.6-1.3); MAGNESIUM - SERUM 1.9 mg/dL (1.8-2.4); POTASSIUM - SERUM 3.6 mmol/L (3.5-5.1); PROTEIN - SERUM 6.8 g/dL (6.4-8.2)
--- NOTE | 2019-03-19 07:27 | NUR ---
ALERT AND ORIENTED. LUNGS CLEAR BILATERALLY. HEART SOUNDS S1 AND S2 HEARD IN ALL [place]. BOWEL SOUNDS ACTIVE X 4. AMPUTATION NOTED TO LEFT SECOND TOE. BRACE IN PLACE TO LEFT HIP. SKIN OTHERWISE INTACT WITHOUT REDNESS. REQUESTING PAIN MEDICATION. NOT DUE UNTIL 0820. VERBALIZED UNDERSTANDING. DENIES NEEDS. BED LOW. FALL PRECAUTIONS IN PLACE. CALL [place] AND PERSONAL ITEMS IN REACH. WILL CONTINUE TO MONITOR.
[2019-03-19 07:58] LABS: HEMATOCRIT 22.9 % (42.0-54.0); HEMOGLOBIN 8.1 g/dL (13.5-17.5); LYMPHOCYTES 14.3 % (15-50); MCH 33.5 pg (26.0-34.0); MCHC 35.4 g/dL (31.0-37.0); MCV 94.6 fL (80.0-100.0); NEUTROPHILS 71.1 % (40-80); PLATELET COUNT 206 10x3/uL (130-400); RBC 2.42 10x6/uL (4.20-6.10); RDW 14.5 % (11.5-14.5)
[2019-03-19 07:59] VITALS: BP 109/64
--- NOTE | 2019-03-19 09:06 | NUR ---
NO TELEMETRY AVAILABLE PER APR AT MONITORS.
--- NOTE | 2019-03-19 10:29 | NUR ---
RESTING IN BED. DENIES NEEDS. WILL CONTINUE TO MONITOR.
--- NOTE | 2019-03-19 10:53 | MORECARE ---
CASE MANAGEMENT DISCHARGE SUMMARY PATIENT: ARTUR LEE UNIT: [id number] ADM DATE: 03/17/19 AGE: 68 : 50 SEX: M ROOM/BED: D.2217 AUTHOR: LEILANI,DOC PHYSICIAN: REFERRING PHYSICIAN: DINO CALZADA MD DATE OF SERVICE: 03/19/19 Discharge Plan Patient Name: ARTUR LEE Facility: [facility]:[place] : 1950 Planned Disposition: Home Anticipated Discharge Date: 03/17/19 Discharge Date: Expected LOS: 1 Initial Reviewer: [email or web address] Initial Review Date: 03/16/2019 Generated: 03/19/19 11:52 am DCP- Discharge Planning Updated by [email or web address]: Juana Quintana on 03/16/19 4:[address] DC PLAN: Return home alone - ANTICIPATED DC NEEDS: home health CM met with patient and his friend, Carlos Manuel Regan to complete initial dc planning assessment. CM educated patient on the CM role and verbal consent given by patient to complete assessment. CM verified patient's address, phone number, and emergency contact phone numbers. Patient lives at home alone and reports he is independent in his care at home. Jass is shaking his head NO when patient is saying his independent. CM questioned Jass as to why he was shaking his head and he stated for the last month he has been struggling. He was placed in [facility] and he "ESCAPED" from there. Cm asked patient about this and he said "yes, he was ready to go home so he left". At discharge patient plans to return home and feels this is a safe discharge. Jass disagrees that he needs to go home. CM discussed availability of home health, rehab services, and medical equipment. Patient stated [facility] to see about [facility]. He is not sure this is home health or what. Patient denied known discharge needs at this time. Patient may need home health at dc if the [place] is not providing this service. Transportation provider at discharge will be either Jass or his sister. CM will continue to follow and will assist as needed with dc plans/needs. Juana Quintana RN, [facility] DCPIA - Discharge Planning Initial Assessment Updated by [email or web address]: Juana Quintana on 03/16/19 5:13 pm * Is the patient Alert and Oriented? Yes * How many steps to enter\\exit or inside your home? Elevator * [facility] * Preadmission Environment Home Alone * ADLs Partial Dependent * Partial ADLs (Assistance needed) Ambulation * Equipment Hospital Bed Power Chair or Electric Scooter * Other Equipment Transfer Chair * List name and contact numbers for known caregivers / representatives who currently or will assist patient after discharge: Carlos Manuel mantilla - [phone] Rabia lo - [phone] * Verbal permission to speak to the caregivers and representatives has been obtained from the patient. Yes * Community resources currently utilized Other * Please name any agencies selected above. [place] sends someone once a month. Not sure if this is home health. * Additional services required to return to the preadmission environment? Yes * Can the patient safely return to the preadmission environment? Yes Coverage Notice Reviewer: [email or web address] Jerry Quintana Notice Issued Date-Time: 03/16/2019 15:05 Notice Type: Medicare Outpatient Observation Notice Notice Delivered To: Patient Relationship to Patient: Bisque Kiln Drawer Name: Delivery Method: HAND - Hand Delivered Katherin Days: Prior Verbal Notification: Recipient Understood Notice: Recipient Signature: Med Rec Note Co-signed by Attending: Coverage Notice Comment: ZAMAN delivered, explained, signed by the patient, and placed in his chart. Signed form also left with patient. Juana Quintana RN , [facility] Reviewer: [email or web address] Jerry Aguiar Notice Issued Date-Time: 03/19/2019 10:00 Notice Type: IM Discharge Notice Notice Delivered To: Patient Relationship to Patient: Bisque Kiln Drawer Name: Delivery Method: HAND - Hand Delivered Katherin Days: Prior Verbal Notification: Recipient Understood Notice: Yes Recipient Signature: Yes Med Rec Note Co-signed by Attending: Coverage Notice Comment: Reviewer: [email or web address] Jerry Aguiar Notice Issued Date-Time: 03/19/2019 10:00 Notice Type: Patient Choice Letter Notice Delivered To: Patient Relationship to Patient: Bisque Kiln Drawer Name: Delivery Method: HAND - Hand Delivered Katherin Days: Prior Verbal Notification: Recipient Understood Notice: Yes Recipient Signature: Yes Med Rec Note Co-signed by Attending: Coverage Notice Comment: day with king Miller DP export: 03/16/19 4:35 Patient Name: ARTUR LEE Page [id number] at 1053 All edits/amendments must be made on the electronic document DICTATION DATE: 03/19/191051 JOB PRINTER APPRENTICE: TESFAYE 03/19/19 105 RPT#: [id number] DC DATE: STATUS: ADM IN [facility] [address] [place] [address] END OF REPORT
--- NOTE | 2019-03-19 11:01 | MORECARE ---
CASE MANAGEMENT DISCHARGE SUMMARY PATIENT: ARTUR LEE UNIT: [id number] ADM DATE: 03/17/19 AGE: 68 : 50 SEX: M ROOM/BED: D.2217 AUTHOR: LEILANI,DOC PHYSICIAN: REFERRING PHYSICIAN: DINO CALZADA MD DATE OF SERVICE: 03/19/19 Discharge Plan Patient Name: ARTUR LEE Facility: [facility]:[place] : 1950 Planned Disposition: Home Anticipated Discharge Date: 03/17/19 Discharge Date: Expected LOS: 1 Initial Reviewer: [email or web address] Initial Review Date: 03/16/2019 Generated: 03/19/19 12:00 pm DCP- Discharge Planning Updated by [email or web address]: Juana Quintana on 03/16/19 4:[address] DC PLAN: Return home alone - ANTICIPATED DC NEEDS: home health CM met with patient and his friend, Carlos Manuel Regan to complete initial dc planning assessment. CM educated patient on the CM role and verbal consent given by patient to complete assessment. CM verified patient's address, phone number, and emergency contact phone numbers. Patient lives at home alone and reports he is independent in his care at home. Jass is shaking his head NO when patient is saying his independent. CM questioned Jass as to why he was shaking his head and he stated for the last month he has been struggling. He was placed in [facility] and he "ESCAPED" from there. Cm asked patient about this and he said "yes, he was ready to go home so he left". At discharge patient plans to return home and feels this is a safe discharge. Jass disagrees that he needs to go home. CM discussed availability of home health, rehab services, and medical equipment. [facility] He is not sure this is home health or what. Patient denied known discharge needs at this time. Patient may need home health at dc if the [place] is not providing this service. Transportation provider at discharge will be either Jass or his sister. CM will continue to follow and will assist as needed with dc plans/needs. Juana Quintana RN, [facility] DCPIA - Discharge Planning Initial Assessment Updated by [email or web address]: Juana Quintana on 03/16/19 5:13 pm * Is the patient Alert and Oriented? Yes * How many steps to enter\\exit or inside your home? Elevator * [facility] * Preadmission Environment Home Alone * ADLs Partial Dependent * Partial ADLs (Assistance needed) Ambulation * Equipment Hospital Bed Power Chair or Electric Scooter * Other Equipment Transfer Chair * List name and contact numbers for known caregivers / representatives who currently or will assist patient after discharge: Carlos Manuel mantilla - [phone] Rabia lo - [phone] * Verbal permission to speak to the caregivers and representatives has been obtained from the patient. Yes * Community resources currently utilized Other * Please name any agencies selected above. [place] sends someone once a month. Not sure if this is home health. * Additional services required to return to the preadmission environment? Yes * Can the patient safely return to the preadmission environment? Yes External Providers External Provider: [facility] Next Contact Date: Service Request Date: Service Type: Resolution: Reviewer: Comments: Coverage Notice Reviewer: [id number] Jerry Aguiar Notice Issued Date-Time: 03/19/2019 10:00 Notice Type: IM Discharge Notice Notice Delivered To: Patient Relationship to Patient: Safety Leader Name: Delivery Method: HAND - Hand Delivered Katherin Days: Prior Verbal Notification: Recipient Understood Notice: Yes Recipient Signature: Yes Med Rec Note Co-signed by Attending: Coverage Notice Comment: Reviewer: [id number] Jerry Quintana Notice Issued Date-Time: 03/16/2019 15:05 Notice Type: Medicare Outpatient Observation Notice Notice Delivered To: Patient Relationship to Patient: Safety Leader Name: Delivery Method: HAND - Hand Delivered Katherin Days: Prior Verbal Notification: Recipient Understood Notice: Recipient Signature: Med Rec Note Co-signed by Attending: Coverage Notice Comment: ZAMAN delivered, explained, signed by the patient, and placed in his chart. Signed form also left with patient. Juana Quintana RN , [facility] Reviewer: [id number] Jerry Aguiar Notice Issued Date-Time: 03/19/2019 10:00 Notice Type: Patient Choice Letter Notice Delivered To: Patient Relationship to Patient: Safety Leader Name: Delivery Method: HAND - Hand Delivered Katherin Days: Prior Verbal Notification: Recipient Understood Notice: Yes Recipient Signature: Yes Med Rec Note Co-signed by Attending: Coverage Notice Comment: day with quapaw Last DP export: 03/19/19 9:53 Patient Name: ARTUR LEE Page [id number] at 1101 All edits/amendments must be made on the electronic document DICTATION DATE: 03/19/19 1100 REHAB CONSULTANT: TESFAYE 03/19/19 1100 RPT#: [id number] DC DATE: STATUS: ADM IN [facility] [address] [place] [address] END OF REPORT
--- NOTE | 2019-03-19 11:14 | MORECARE ---
CASE MANAGEMENT DISCHARGE SUMMARY PATIENT: ARTUR LEE UNIT: [id number] ADM DATE: 03/17/19 AGE: 68 : 50 SEX: M ROOM/BED: D.2217 AUTHOR: LEILANI,DOC PHYSICIAN: REFERRING PHYSICIAN: DINO CALZADA MD DATE OF SERVICE: 03/19/19 Discharge Plan Patient Name: ARTUR LEE Facility: [facility]:[place] : 1950 Planned Disposition: Home Anticipated Discharge Date: 03/17/19 Discharge Date: Expected LOS: 1 Initial Reviewer: [email or web address] Initial Review Date: 03/16/2019 Generated: 03/19/19 12:13 pm Comments DCP- Discharge Planning Updated by [email or web address]: Sharonda Aguiar on 03/19/19 10:[address] met with patient about dc plan, he would like to go back to [place], DAY signed and referral sent to [facility]. [facility] also signed and explained. CM to follow and assist with dc planning DCP- Discharge Planning Updated by [id number]: Juana Quintana on 03/16/19 4:[address] DC PLAN: Return home alone - ANTICIPATED DC NEEDS: home health CM met with patient and his friend, Carlos Manuel Regan to complete initial dc planning assessment. CM educated patient on the CM role and verbal consent given by patient to complete assessment. CM verified patient's address, phone number, and emergency contact phone numbers. Patient lives at home alone and reports he is independent in his care at home. Jass is shaking his head NO when patient is saying his independent. CM questioned Jass as to why he was shaking his head and he stated for the last month he has been struggling. He was placed in [facility] and he "ESCAPED" from there. Cm asked patient about this and he said "yes, he was ready to go home so he left". At discharge patient plans to return home and feels this is a safe discharge. Jass disagrees that he needs to go home. CM discussed availability of home health, rehab services, and medical equipment. Patient stated the [facility] sends someone [facility] a month to see about him. He is not sure this is home health or what. Patient denied known discharge needs at this time. Patient may need home health at dc if the [place] is not providing this service. Transportation provider at discharge will be either Jass or his sister. CM will continue to follow and will assist as needed with dc plans/needs. Juana Quintana RN, [facility] DCPIA - Discharge Planning Initial Assessment Updated by [email or web address]: Juana Quintana on 03/16/19 5:13 pm * Is the patient Alert and Oriented? Yes * How many steps to enter\\exit or inside your home? Elevator * [facility] * Preadmission Environment Home Alone * ADLs Partial Dependent * Partial ADLs (Assistance needed) Ambulation * Equipment Hospital Bed Power Chair or Electric Scooter * Other Equipment Transfer Chair * List name and contact numbers for known caregivers / representatives who currently or will assist patient after discharge: Carlos Manuel Regan - friend - [phone] Rabia Edwards sister - [phone] * Verbal permission to speak to the caregivers and representatives has been obtained from the patient. Yes * Community resources currently utilized Other * Please name any agencies selected above. [place] sends someone once a month. Not sure if this is home health. * Additional services required to return to the preadmission environment? Yes * Can the patient safely return to the preadmission environment? Yes Coverage Notice Reviewer: [id number] Jerry Aguiar Notice Issued Date-Time: 03/19/2019 10:00 Notice Type: IM Discharge Notice Notice Delivered To: Patient Relationship to Patient: Printing Press Machinist Name: Delivery Method: HAND - Hand Delivered Katherin Days: Prior Verbal Notification: Recipient Understood Notice: Yes Recipient Signature: Yes Med Rec Note Co-signed by Attending: Coverage Notice Comment: Reviewer: [id number] - Juana Quintana Notice Issued Date-Time: 03/16/2019 15:05 Notice Type: Medicare Outpatient Observation Notice Notice Delivered To: Patient Relationship to Patient: Printing Press Machinist Name: Delivery Method: HAND - Hand Delivered Katherin Days: Prior Verbal Notification: Recipient Understood Notice: Recipient Signature: Med Rec Note Co-signed by Attending: Coverage Notice Comment: ZAMAN delivered, explained, signed by the patient, and placed in his chart. Signed form also left with patient. Juana Quintana RN , CCM Reviewer: [id number] Jerry Aguiar Notice Issued Date-Time: 03/19/2019 10:00 Notice Type: Patient Choice Letter Notice Delivered To: Patient Relationship to Patient: Printing Press Machinist Name: Delivery Method: HAND - Hand Delivered Katherin Days: Prior Verbal Notification: Recipient Understood Notice: Yes Recipient Signature: Yes Med Rec Note Co-signed by Attending: Coverage Notice Comment: day with king Last DP export: 03/19/19 10:01 Patient Name: ARTUR LEE Page [phone] at 1114 All edits/amendments must be made on the electronic document DICTATION DATE: 03/19/191112 STAVE BOLT EQUALIZER: TESFAYE 03/19/191112 RPT#: [id number] DC DATE: STATUS: ADM IN [facility] [address] [place] [address] END OF REPORT
--- NOTE | 2019-03-19 11:59 | NUR ---
FAMILY REQUESTING TO SPEAK WITH CM. CM ON LUNCH BREAK. FAMILY NOTIFIED. STATES WILL COME BACK AFTER LUNCH.
--- NOTE | 2019-03-19 12:21 | NUR ---
RESTING IN BED. DENIES NEEDS. WILL CONTINUE TO MONITOR.
--- NOTE | 2019-03-19 13:47 | NUR ---
BLOOD CONSENTS SIGNED AND ON CHART. PATIENT DENIES QUESTIONS. EDUCATION PAPER PROVIDED.
--- NOTE | 2019-03-19 14:56 | NUR ---
VITALS STABLE. BLOOD TRANSFUSION UNIT 1 INITIATED. WILL CONTINUE TO MONITOR.
--- NOTE | 2019-03-19 15:11 | NUR ---
BLOOD CONTINUES TRANSFUSING. VITALS REMAIN STABLE.
--- NOTE | 2019-03-19 15:46 | MORECARE ---
CASE MANAGEMENT DISCHARGE SUMMARY PATIENT: ARTUR LEE UNIT: [id number] ADM DATE: 03/17/19 AGE: 68 : 50 SEX: M ROOM/BED: D.2217 AUTHOR: LEILANI,DOC PHYSICIAN: REFERRING PHYSICIAN: DINO CALZADA MD DATE OF SERVICE: 03/19/19 Discharge Plan Patient Name: ARTUR LEE Facility: [facility]:[place] : 1950 Planned Disposition: Home Anticipated Discharge Date: 03/17/19 Discharge Date: Expected LOS: 1 Initial Reviewer: [email or web address] Initial Review Date: 03/16/2019 Generated: 03/19/19 4:46 pm Comments DCP- Discharge Planning Updated by [email or web address]: Sharonda Aguiar on 03/19/19 2:[address] [facility] HAS CALLED AND SAID THAT HE ONLY HAS 2 DAYS TILL HIS CO-PAY DAYS START, HIS FRIEND NAI WANGRose STATED HE HAD THE VA. [facility] WAS GOING TO CALL THE VA, IF THEY COULD NOT COVER THE CO-PAY (THEY DID NOT THINK IT WOULD BE COVERED) THEY WERE GOING TO TALK TO THE PATIENT ABOUT APPYING FOR [facility]. HE IS CLINICALLY APPROVED TO GO TO [place]. JUST NEED FINANICALS NOW AND AUTH FROM [facility] DCP- Discharge Planning Updated by [id number]: Sharonda Augiar on 03/19/19 10:[address] met with patient about dc plan, he would like to go back to [place], [place] signed and referral sent to [place]. [facility] also signed and explained. CM to follow and assist with dc planning DCP- Discharge Planning Updated by [email or web address]: Juana Quintana on 03/16/19 4:[address] DC PLAN: Return home alone - ANTICIPATED DC NEEDS: home health CM met with patient and his friend, Carlos Manuel Regan to complete initial dc planning assessment. CM educated patient on the CM role and verbal consent given by patient to complete assessment. CM verified patient's address, phone number, and emergency contact phone numbers. Patient lives at home alone and reports he is independent in his care at home. Jass is shaking his head NO when patient is saying his independent. CM questioned Jass as to why he was shaking his head and he stated for the last month he has been struggling. He was placed in [place] [facility] and he "ESCAPED" from there. Cm asked patient about this and he said "yes, he was ready to go home so he left". At discharge patient plans to return home and feels this is a safe discharge. Jass disagrees that he needs to go home. CM discussed availability of home health, rehab services, and medical equipment. Patient stated [facility] someone [facility] to see about him. He is not sure this is home health or what. Patient denied known discharge needs at this time. Patient may need home health at dc if the [place] is not providing this service. Transportation provider at discharge will be either Jass or his sister. CM will continue to follow and will assist as needed with dc plans/needs. Juana Quintana RN, [facility] DCPIA - Discharge Planning Initial Assessment Updated by [email or web address]: Juana Quintana on 03/16/19 5:13 pm * Is the patient Alert and Oriented? Yes * How many steps to enter\\exit or inside your home? Elevator * PCP [place] * [facility] * Preadmission Environment Home Alone * ADLs Partial Dependent * Partial ADLs (Assistance needed) Ambulation * Equipment Hospital Bed Power Chair or Electric Scooter * Other Equipment Transfer Chair * List name and contact numbers for known caregivers / representatives who currently or will assist patient after discharge: Carlos Manuel Regan - friend - [phone] Rabia Edwards sister - [phone] * Verbal permission to speak to the caregivers and representatives has been obtained from the patient. Yes * Community resources currently utilized Other * Please name any agencies selected above. [place] sends someone once a month. Not sure if this is home health. * Additional services required to return to the preadmission environment? Yes * Can the patient safely return to the preadmission environment? Yes Coverage Notice Reviewer: [id number] - Sharonda Aguiar Notice Issued Date-Time: 03/19/2019 10:00 Notice Type: IM Discharge Notice Notice Delivered To: Patient Relationship to Patient: Orchard Pruner Name: Delivery Method: HAND - Hand Delivered Katherin Days: Prior Verbal Notification: Recipient Understood Notice: Yes Recipient Signature: Yes Med Rec Note Co-signed by Attending: Coverage Notice Comment: Reviewer: [id number] - Juana Quintana Notice Issued Date-Time: 03/16/2019 15:05 Notice Type: Medicare Outpatient Observation Notice Notice Delivered To: Patient Relationship to Patient: Orchard Pruner Name: Delivery Method: HAND - Hand Delivered Katherin Days: Prior Verbal Notification: Recipient Understood Notice: Recipient Signature: Med Rec Note Co-signed by Attending: Coverage Notice Comment: ZAMAN delivered, explained, signed by the patient, and placed in his chart. Signed form also left with patient. Juana Quintana RN , [facility] Reviewer: [id number] Jerry Aguiar Notice Issued Date-Time: 03/19/2019 10:00 Notice Type: Patient Choice Letter Notice Delivered To: Patient Relationship to Patient: Orchard Pruner Name: Delivery Method: HAND - Hand Delivered Katherin Days: Prior Verbal Notification: Recipient Understood Notice: Yes Recipient Signature: Yes Med Rec Note Co-signed by Attending: Coverage Notice Comment: [place] with camryn Miller DP export: 03/19/19 10:14 Patient Name: ARTUR LEE Page [phone] at 1546 All edits/amendments must be made on the electronic document DICTATION DATE: 03/19/19 1546 SEED CORN MANAGER PRODUCTION: TESFAYE 03/19/19 1546 RPT#: [id number] DC DATE: STATUS: ADM IN [facility] [address] [place] [address] END OF REPORT
--- NOTE | 2019-03-19 16:34 | NUR ---
RESTING IN BED. DENIES NEEDS. WILL CONTINUE TO MONITOR.
--- NOTE | 2019-03-19 17:15 | NUR ---
BLOOD TRANSFUSION UNIT 1 COMPLETE. VITALS STABLE.
--- NOTE | 2019-03-19 17:19 | NUR ---
BLOOD TRANSFUSION UNIT 2 INITIATED. VITALS STABLE.
[2019-03-19 17:22] VITALS: BP 123/59
--- NOTE | 2019-03-19 17:34 | NUR ---
BLOOD CONTINUES INFUSING. VITALS REMAIN STABLE. PATIENT SITTING IN BED EATING DINNER.
--- NOTE | 2019-03-19 18:35 | NUR ---
RESTING IN BED. BLOOD TRANSFUSING. VITALS REMAIN STABLE. BED LOW. FALL PRECAUTIONS IN PLACE. CALL [place] AND PERSONAL ITEMS IN REACH.
--- NOTE | 2019-03-19 19:15 | NUR ---
BEDSIDE REPORT RECEIVED FROM AMADOU GARCIA. PATIENT INFUSING 2ND UNIT PRBC. CONTINUAL VITAL SIGN MONITORING. DENIES NEEDS AT THIS TIME. AMADOU GARCIA STATES PATIENT RECEIVED NORCO AT 1854 PER ORDER. REASSESED PATIENT PAIN, PATIENT RATES "7" AT THIS TIME. DENIES FURTHER NEEDS. CALL LIGHT WITHIN REACH OF PATIENT. CPOC.
--- NOTE | 2019-03-19 19:45 | NUR ---
PHYSICAL ASSESSMENT COMPLETED.
--- NOTE | 2019-03-19 19:50 | NUR ---
PATIENT WITH HOB AT 40 DEGREE ANGLE. PATIENT RESPONDS SOFTLY AND SLOWLY AT TIMES BUT IS ALERT AND ORIENTED WITH APPROPRIATE RESPONSES. PERRLA. NASAL CANNULA IN PLACE, PATIENT MOUTH BREATHER AND SOMETIMES MOVES CANNULA TO MOUTH. ASSESSING HIPS AND BRACE. BRACE LOOSE, TIGHTENED. EDUCATED PATIENT NOT TO PULL ON BRACE AND TO NOT CROSS ANKLES. PATIENT NODS HEAD. ASKED PATIENT TO VERBALIZE UNDERSTANDING, PATIENT STATES "I WONT TAKE OFF MY BRACE." FOOT PUMPS STRONG BILATERALLY. PEDAL PULSES NOTED. LEFT SECOND DIGIT AMPUTATED. STITCHES AT SITE. NO FURTHER NEEDS AT THIS TIME. CPOC.
--- NOTE | 2019-03-19 19:52 | NUR ---
PRBC DONE TRANSFUSING. SWITCHED TO NS TO FLUSH AND RECEIVED REMAINDER OF BLOOD IN LINE. DENIES NEEDS. CALL LIGHT IN REACH. CPOC.
[2019-03-19 20:00] VITALS: BP 136/71
--- NOTE | 2019-03-19 23:40 | NUR ---
ROUNDING ON PATIENTS. PATIENT LOOSENED BRACE AGAIN AND CANNULA OUT OF NOSE. APPLIED TO SMALL PIECES OF TAPE TO EITHER SIDE OF FACE TO SECURE CANNULA. REFASTENED ABDUCTION BRACE. PROVIDED BED CHANGE FOR PATIENT. HIPS REMAIN SYMMETRICAL. LOWER EXTREMETIES SYMMETRICAL WITH NO LENGTHINING OF EITHER SIDE NOTED. SPOKE WITH CHARGE NURSE ABOUT FEAR THAT PATIENT WOULD RE-DISLOCATE HIP DUE TO LOOSENING OF BRACE. ADVISED THAT THERE IS AN ABDUCTION PILLOW AT BEDSIDE. CHARGE NURSE AMADOU CAGLE AND THIS NURSE AGREED TO PLACE ABDUCTION PILLOW WELL BRACE TO PREVENT PATIENT FROM RE-DISLOCATING SINCE PATIENT CONTINUALLY LOOSENS AND ANKLES ARE GRAVITATING INWARD. CPOC.
[2019-03-20] VITALS: BP 140/75
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
--- NOTE | 2019-03-20 03:03 | NUR ---
PATIENT RESTING WITH NO SIGNS OF DISTRESS AT THIS TIME. CPOC.
--- NOTE | 2019-03-20 03:50 | NUR ---
I have reviewed this patient and I concur with the Shift Assessment completed by the Licensed Practical Nurse today this shift.
[2019-03-20 04:30] VITALS: BP 132/66
--- NOTE | 2019-03-20 05:50 | NUR ---
INSTRUCTED ROBOTICS SOFTWARE ENGINEER TO SKIP 4 AM VITALS SINCE PATIENT FINALLY RESTING. THIS NURSE ASSESSED VITAL SIGNS AT 0500 AND PROVIDED BED BATH AND REPOSITIONING. PLACED REGULAR PILLOW BETWEEN PATIENT ANKLES TO HELP SUPPORT BRACE. PATIENT RETURNED TO RESTING AFTER BED BATH AND SHEET CHANGE WAS PROVIDED. REFUSED PROTONIX BUT ALLOWED THIS NURSE TO ASSESS FSBS WHICH WAS 84.
--- NOTE | 2019-03-20 06:21 | NUR ---
PTOVIDED APPLE JUICE PER REQUEST.
[2019-03-20 07:55] LABS: BASOPHILS 0.3 % (0-2); EOSINOPHILS 9.6 % (0-7); IMMATURE GRANULOCYTES 0.4 % (0-5); LYMPHOCYTES 16.7 % (15-50); MCH 31.6 pg (26.0-34.0); MCHC 33.7 g/dL (31.0-37.0); MCV 93.8 fL (80.0-100.0); MEAN PLATELET VOLUME 10.3 fL (7.4-10.4); MONOCYTES 10.3 % (2-11); NEUTROPHILS 62.7 % (40-80); RDW 15.5 % (11.5-14.5); WBC 7.1 10x3/uL (4.8-10.8)
[2019-03-20 08:04] LABS: HEMATOCRIT 30.3 % (42.0-54.0); HEMOGLOBIN 10.2 g/dL (13.5-17.5); PLATELET COUNT 263 10x3/uL (130-400); RBC 3.23 10x6/uL (4.20-6.10)
[2019-03-20 08:23] LABS: ALBUMIN 2.2 g/dL (3.4-5.0); ANION GAP 14.7 mmol/L (8-16); BILIRUBIN - TOTAL 0.54 mg/dL (0.2-1.3); CALCIUM 8.7 mg/dL (8.5-10.1); CARBON DIOXIDE 21.7 mmol/L (21.0-32.0); MAGNESIUM - SERUM 1.8 mg/dL (1.8-2.4); POTASSIUM - SERUM 3.4 mmol/L (3.5-5.1); PROTEIN - SERUM 7.1 g/dL (6.4-8.2)
[2019-03-20 08:29] LABS: CREATININE - SERUM 1.5 mg/dL (0.6-1.3)
[2019-03-20 14:29] VITALS: BP 137/68
[2019-03-20 16:26] VITALS: BP 99/61
--- NOTE | 2019-03-20 19:15 | NUR ---
PATIENT ALERT WHEN ENTERING THE ROOM. HIP ABBDUCTOR IN PLACE. SCD'S ON. RIGHT FOREARM IV INFUSING NS @ 30. URINAL AT BEDSIDE. SHEETS CURRENTLY CLEAN AND DRY. PATIENT HAS CALL LIGHT IN REACH. DENIES NEEDS AT THIS TIME. CPOC.
[2019-03-20 20:00] VITALS: BP 132/67
[2019-03-21] VITALS: BP 136/74
--- NOTE | 2019-03-21 00:17 | NUR ---
RESTING WITH NO SIGNS OF DISTRESS AT THIS TIME. CALL LIGHT WITH IN REACH. CPOC.
--- NOTE | 2019-03-21 02:55 | NUR ---
I have reviewed this patient and I concur with the Shift Assessment completed by the Licensed Practical Nurse today this shift.
[2019-03-21 04:00] VITALS: BP 141/67
--- NOTE | 2019-03-21 06:03 | NUR ---
BED BATH PROVIDED. PATIENT REQUESTED PAIN MEDICINE. PROVIDED PER ORDER. CHECKED SKIN INTEGRITY UNDER ABDUCTOR BRACE AND BILATERAL LOWER EXTREMETIES AFTER SCD REMOVAL FOR BED BATH. PATIENT TOLERATED BATH WELL. ROLLING FROM SIDE TO SIDE MUCH BETTER THIS AM THAN YESTERDAY. UNABLE TO COLLECT STOOL SAMPLE PATIENT DID NOT HAVE BOWEL MOVEMENT LAST NIGHT. WILL PASS IN REPORT THAT SAMPLE IS STILL NEEEDED. PATIENT BED ALARM ON. CALL LIGHT IN REACH. PATIENT WATCHING TV AND DOES NOT APPEAR IN ANY DISTRESS WHEN LEAVING THE ROOM. CPOC.
[2019-03-21 06:15] LABS: BASOPHILS 0.4 % (0-2); EOSINOPHILS 8.1 % (0-7); HEMATOCRIT 34.4 % (42.0-54.0); HEMOGLOBIN 11.5 g/dL (13.5-17.5); IMMATURE GRANULOCYTES 0.7 % (0-5); LYMPHOCYTES 17.5 % (15-50); MCH 31.9 pg (26.0-34.0); MCHC 33.4 g/dL (31.0-37.0); MCV 95.3 fL (80.0-100.0); MONOCYTES 10.3 % (2-11); PLATELET COUNT 265 10x3/uL (130-400); RBC 3.61 10x6/uL (4.20-6.10); RDW 15.5 % (11.5-14.5); WBC 8.3 10x3/uL (4.8-10.8)
[2019-03-21 06:43] LABS: ALBUMIN 2.4 g/dL (3.4-5.0); ANION GAP 14.8 mmol/L (8-16); BILIRUBIN - TOTAL 0.55 mg/dL (0.2-1.3); CALCIUM 9.2 mg/dL (8.5-10.1); CARBON DIOXIDE 22.1 mmol/L (21.0-32.0); CREATININE - SERUM 1.3 mg/dL (0.6-1.3); MAGNESIUM - SERUM 1.9 mg/dL (1.8-2.4); POTASSIUM - SERUM 3.9 mmol/L (3.5-5.1); PROTEIN - SERUM 7.6 g/dL (6.4-8.2)
[2019-03-21 08:45] VITALS: BP 135/63
--- NOTE | 2019-03-21 09:20 | NUR ---
PT RECEIVED LAYING IN BED FAVORING LEFT SIDE. BREAKFAST SET UP FOR HIM TO EAT. MEDS GIVEN. URINAL EMPTIED. ABDUCTOR BRACE IN PLACE.
[2019-03-21 12:00] VITALS: BP 134/61
[2019-03-21 17:01] VITALS: BP 139/68
--- NOTE | 2019-03-21 19:15 | NUR ---
PATIENT ALERT AND ORIENTED WHEN ENTERING THE ROOM. HOB ELEVATED TO 45 DEGREE ANGLE. PATIENT COVERED IN URINE. BED CHANGE PROVIDED. PATIENT HAD UNFASTENED LEFT HIP ABDUCTOR. PROVIDED SEVERAL MINUTES WORTH OF EDUCATION ABOUT BRACE AND IMPORTANCE TO PATIENT BUT PATIENT IS PASSIVE WITH EDUCATION AND TEACHING. RIGHT FOREARM IV THAT IS INFUSING NS @ 50 PER ORDER. DENIES NEEDS. SCD'S ON. PILLOW INBETWEEN ANKLES TO AVOID RE-DISLOCATION. CALL LIGHT IN REACH. CPOC.
[2019-03-21 20:00] VITALS: BP 132/85
[2019-03-22 04:00] VITALS: BP 127/65
[2019-03-22 04:48] LABS: BASOPHILS 0.3 % (0-2); EOSINOPHILS 7.5 % (0-7); HEMATOCRIT 29.3 % (42.0-54.0); HEMOGLOBIN 9.7 g/dL (13.5-17.5); LYMPHOCYTES 16.6 % (15-50); MCH 31.7 pg (26.0-34.0); MCHC 33.1 g/dL (31.0-37.0); MCV 95.8 fL (80.0-100.0); MEAN PLATELET VOLUME 10.3 fL (7.4-10.4); MONOCYTES 9.9 % (2-11); NEUTROPHILS 64.7 % (40-80); PLATELET COUNT 316 10x3/uL (130-400); RBC 3.06 10x6/uL (4.20-6.10)
[2019-03-22 05:09] LABS: WBC 11.6 10x3/uL (4.8-10.8)
[2019-03-22 05:24] LABS: ALBUMIN 2.3 g/dL (3.4-5.0); ANION GAP 14.1 mmol/L (8-16); BILIRUBIN - TOTAL 0.52 mg/dL (0.2-1.3); CARBON DIOXIDE 23.5 mmol/L (21.0-32.0); CREATININE - SERUM 1.4 mg/dL (0.6-1.3); POTASSIUM - SERUM 3.6 mmol/L (3.5-5.1); PROTEIN - SERUM 7.2 g/dL (6.4-8.2)
--- NOTE | 2019-03-22 08:00 | NUR ---
ASSESSMENT PER FLOW SHEET. PT IS WITHOUT DISTRESS.FALL PREVENTION IN PLACE. MONITOR FOR NEEDS.CALL LIGHT IN REACH
[2019-03-22 08:03] VITALS: BP 129/65
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
[2019-03-22 12:49] VITALS: BP 119/83
--- NOTE | 2019-03-22 13:06 | NUR ---
Nutrition follow-up: Diet: consistent CHO PO Intake ~70% average of last 10 meals Labs reviewed Wt: 160# +BM RDN following.
--- NOTE | 2019-03-22 15:21 | NUR ---
OT NOTE: CONSULTED NURSING IF PATIENT WAS CLEARED FOR THERAPY WITH NO RESTRICTIONS. ALSO, CONSULTED NURSING CONCERNING BRACE. NURSING STATED TO LEAVE BRACE ON WHILE IN BED. PT COMPLETED SUPINE TO SIT WITH MIN/MOD A. PT COMPLETED EOB SITTING BALANCE WITH SBA. PT COMPLETED UE AROM AXS. PT COMPLETED FACE WASH WITH SET UP. THANK YOU, STEFANIE GRIFFIN
--- NOTE | 2019-03-22 15:28 | MORECARE ---
CASE MANAGEMENT DISCHARGE SUMMARY PATIENT: ARTUR LEE UNIT: [id number] ADM DATE: 03/17/19 AGE: 68 : 50 SEX: M ROOM/BED: D.2217 AUTHOR: LEILANI,DOC PHYSICIAN: REFERRING PHYSICIAN: DINO CALZADA MD DATE OF SERVICE: 03/22/19 Discharge Plan Patient Name: ARTUR LEE Facility: [facility]:[place] : 1950 Planned Disposition: Home Anticipated Discharge Date: 03/17/19 Discharge Date: Expected LOS: 1 Initial Reviewer: [email or web address] Initial Review Date: 03/16/2019 Generated: 03/22/19 4:27 pm Comments DCP- Discharge Planning Updated by [id number]: Sharonda Aguiar on 03/22/19 2:[address] SPOKE [place], SHE STATED THAT THEY HAD TO BE NOTIFIED WITHIN 72 HOURS OF ADMISSION FROM ER. SHE DID GIVE ME TRISTAN WHITFIELD ROBB WHO IS OVER THE ACUTE REHAB CALL HER TO SEE IF THERE IS ANYTHING SHE COULD DO [phone] DCP- Discharge Planning Updated by [id number]: Sharonda Aguiar on 03/22/19 8:58 am GREG WOODARD HERE TO SPEAK WITH PATIENT, SHE IS GETTING FINANCIAL INFO FROM PATIENT. DCP- Discharge Planning Updated by [id number]: Sharonda Aguiar on 03/19/19 2:[address] [facility] HAS CALLED AND SAID THAT HE ONLY HAS 2 DAYS TILL HIS CO-PAY DAYS START, HIS FRIEND NAI WOODS STATED HE HAD THE VA. [facility] WAS GOING TO CALL THE VA, IF THEY COULD NOT COVER THE CO-PAY (THEY DID NOT THINK IT WOULD BE COVERED) THEY WERE GOING TO TALK TO THE PATIENT ABOUT APPYING FOR KAYDEN. HE IS CLINICALLY APPROVED TO GO TO [place]. JUST NEED FINANICALS NOW AND AUTH FROM [facility] DCP- Discharge Planning Updated by [id number]: Sharonda Aguiar on 03/19/19 10:[address] met with patient about dc plan, he would like to go back to [place], [place] signed and referral sent to [facility]. IMM also signed and explained. CM to follow and assist with dc planning DCP- Discharge Planning Updated by [id number]: Juana Quintana on 03/16/19 4:[address] DC PLAN: Return home alone - ANTICIPATED DC NEEDS: home health CM met with patient and his friend, Carlos Manuel Regan to complete initial dc planning assessment. CM educated patient on the CM role and verbal consent given by patient to complete assessment. CM verified patient's address, phone number, and emergency contact phone numbers. Patient lives at home alone and reports he is independent in his care at home. Jass is shaking his head NO when patient is saying his independent. CM questioned Jass as to why he was shaking his head and he stated for the last month he has been struggling. He was placed in [facility] and he "ESCAPED" from there. Cm asked patient about this and he said "yes, he was ready to go home so he left". At discharge patient plans to return home and feels this is a safe discharge. Jass disagrees that he needs to go home. CM discussed availability of home health, rehab services, and medical equipment. [place] to [place] about [place]. He is not sure this is home health or what. Patient denied known discharge needs at this time. Patient may need home health at dc if the [place] is not providing [place] service. Transportation provider at discharge will be either Jass or his sister. CM will continue to follow and will assist as needed with dc plans/needs. Juana Quintana RN, [facility] DCPIA - Discharge Planning Initial Assessment Updated by [id number]: Juana Quintana on 03/16/19 5:13 pm * Is the patient Alert and Oriented? Yes * How many steps to enter\\exit or inside your home? Elevator * [facility] [facility] * [place]mission Environment Home Alone * ADLs Partial Dependent * Partial ADLs (Assistance needed) Ambulation * Equipment Hospital Bed Power Chair or Electric Scooter * Other Equipment Transfer Chair * List name and contact numbers for known caregivers / representatives who currently or will assist patient after discharge: Carlos Manuel Regan - friend - [phone] Rabia Schmidt - sister - [phone] * Verbal permission to speak to the caregivers and representatives has been obtained from the patient. Yes * Community resources currently utilized Other * Please name any agencies selected above. [place] sends someone [place]. Not sure if this is home health. * Additional services required to return to the preadmission environment? Yes * Can the patient safely return to the preadmission environment? Yes Coverage Notice Reviewer: [id number] Jerry Quintana Notice Issued Date-Time: 03/16/2019 15:05 Notice Type: Medicare Outpatient Observation Notice Notice Delivered To: Patient Relationship to Patient: Aircraft Metalsmith Name: Delivery Method: HAND - Hand Delivered Katherin Days: Prior Verbal Notification: Recipient Understood Notice: Recipient Signature: Med Rec Note Co-signed by Attending: Coverage Notice Comment: ZAMAN delivered, explained, signed by the patient, and placed in his chart. Signed form also left with patient. Juana Quintana RN , CCM Reviewer: [id number] Jerry Aguiar Notice Issued Date-Time: 03/19/2019 10:00 Notice Type: IM Discharge Notice Notice Delivered To: Patient Relationship to Patient: Aircraft Metalsmith Name: Delivery Method: HAND - Hand Delivered Katherin Days: Prior Verbal Notification: Recipient Understood Notice: Yes Recipient Signature: Yes Med Rec Note Co-signed by Attending: Coverage Notice Comment: Reviewer: [id number] Jerry Aguiar Notice Issued Date-Time: 03/19/2019 10:00 Notice Type: Patient Choice Letter Notice Delivered To: Patient Relationship to Patient: Aircraft Metalsmith Name: Delivery Method: HAND - Hand Delivered Katherin Days: Prior Verbal Notification: Recipient Understood Notice: Yes Recipient Signature: Yes Med Rec Note Co-signed by Attending: Coverage Notice Comment: [place] DIAZ export: 03/22/19 9:03 Patient Name: ARTUR LEE Page [id number] at 1528 All edits/amendments must be made on the electronic document DICTATION DATE: 03/22/191526 MISSILE CONTROL PILOT: [email or web address] 03/22/191526 RPT#: [id number] DC DATE: STATUS: ADM IN [facility] [address] [place] [address] END OF REPORT
[2019-03-22 16:14] VITALS: BP 135/70
--- NOTE | 2019-03-22 16:25 | NUR ---
OT NOTE: PT REPORTS LESS PAIN TODAY. BED MOB IWTH MOD ASSIST TO SIT ON EOB; ABD BRACE IN PLACE. G- SITTING BALANCE ON EOB; UE EXS WHILE ON EOB; SIMPLE GROOMING TASKS WITH SET UP; MAX ASSIST TO CLIFF BRACE AND UNABLE TO CLIFF/DOFF SOCKS. PT WILL REQUIRE CONTINUED THERAPY UPON DC, HE IS UNABLE TO CARE FOR HIMSELF INDEP AT THIS TIME. JONATHON PERRY, OTR/L
[2019-03-22 18:29] VITALS: Ht 172.7 cm; Wt 72.6 kg
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
[2019-03-22 20:41] VITALS: BP 122/64
--- NOTE | 2019-03-22 20:50 | NUR ---
ADMINISTERED HS MEDICATIONS. PATIENT FSBS 198, RECHECKED 195. PATIENT STATED HE DID NOT WANT INSULIN. PATIENT NORMAL FSBS WELL BELOW SLIDING SCALE. PATIENT DISCUSSES WITH THIS NURSE THE CONCERNS OF "GETTING TO LOW." DENIES FURTHER NEEDS. REASSESSED BRACE FOR PLACEMENT. BRACE IN PLACE. PROVIDED COLD WATER PER REQUEST. CALL LIGHT IN REACH. CPOC.
--- NOTE | 2019-03-23 00:49 | NUR ---
RESTING WITH HOB ELEVATED TO 40 DEGREE ANGLE. EYES CLOSED AND RESPIRATIONS ARE EVEN AND UNLABORED. NO DISTRESS NOTED. CALL LIGHT IN REACH. BED ALARM ON. SCD'S ON BILATERALLY. CPOC.
[2019-03-23 01:25] VITALS: BP 126/78
[2019-03-23 04:33] LABS: BASOPHILS 0.2 % (0-2); EOSINOPHILS 6.9 % (0-7); HEMATOCRIT 30.9 % (42.0-54.0); HEMOGLOBIN 10.3 g/dL (13.5-17.5); IMMATURE GRANULOCYTES 1.2 % (0-5); LYMPHOCYTES 15.5 % (15-50); MCH 31.4 pg (26.0-34.0); MCHC 33.3 g/dL (31.0-37.0); MCV 94.2 fL (80.0-100.0); MONOCYTES 7.3 % (2-11); NEUTROPHILS 68.9 % (40-80); PLATELET COUNT 334 10x3/uL (130-400); RBC 3.28 10x6/uL (4.20-6.10); RDW 14.8 % (11.5-14.5); WBC 8.9 10x3/uL (4.8-10.8)
[2019-03-23 05:09] LABS: ANION GAP 15.2 mmol/L (8-16); CALCIUM 8.7 mg/dL (8.5-10.1); CARBON DIOXIDE 21.3 mmol/L (21.0-32.0); CREATININE - SERUM 1.5 mg/dL (0.6-1.3); POTASSIUM - SERUM 3.5 mmol/L (3.5-5.1)
--- NOTE | 2019-03-23 05:35 | NUR ---
BED BATH PROVIDED FOR PATIENT. ASSESSED AREAS PATIENT COMPLAINING ABOUT DUE TO BRACE AND APPLIED THIN WHITE SHEET BARRIER BETWEEN BRACE AND SKIN. PATIENT REPORTS RELIEF. CHG ANTIMICROBIAL SOAP USED. PATIENT REQUESTED PRN PAIN MEDICINE. ADMINISTERED PER ORDER WITH OTHER MORNING MEDICATIONS. DENIES FURTHER NEEDS. SCD'S ON BILATERALLY. BED ALARM REMAINS ON. CALL LIGHT WITHIN REACH. FRESH WATER FOR PATIENT. IV REMAINS INFUSING @ 30 ML PER HOUR. CPOC.
--- NOTE | 2019-03-23 06:20 | NUR ---
I have reviewed this patient and I concur with the Shift Assessment completed by the Licensed Practical Nurse today this shift.
--- NOTE | 2019-03-23 08:00 | NUR ---
ASSESSMENT PER FLOW SHEET. PT IS WITHOUT DISTRESS.CALL LIGHT IN REACH
[2019-03-23 08:24] VITALS: BP 130/70
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
--- NOTE | 2019-03-23 09:39 | MORECARE ---
CASE MANAGEMENT DISCHARGE SUMMARY PATIENT: ARTUR LEE UNIT: [id number] ADM DATE: 03/17/19 AGE: 68 : 50 SEX: M ROOM/BED: D.2217 AUTHOR: LEILANI,DOC PHYSICIAN: REFERRING PHYSICIAN: DINO CALZADA MD DATE OF SERVICE: 03/23/19 Discharge Plan Patient Name: ARTUR LEE Facility: [facility]:[place] : 1950 Planned Disposition: Home Anticipated Discharge Date: 03/17/19 Discharge Date: Expected LOS: 1 Initial Reviewer: [id number] Initial Review Date: 03/16/2019 Generated: 03/23/19 10:38 am Comments DCP- Discharge Planning Updated by [id number]: Sharonda Aguiar on 03/23/19 8:[address] TRISTAN WITH THE PA CALLED [facility] AND ASKED FOR CLINICALS TO BE SENT TO [phone] DCP- Discharge Planning Updated by [id number]: Sharonda Aguiar on 03/23/19 8:[address] CALLED TRISTAN WHITFIELD WITH THE PA & LEFT MESSAGE FOR HER TO CALL ME BACK [phone] TO SEE IF THE PATIENT HAD OPTIONS FOR REHAB THERE DCP- Discharge Planning Updated by [id number]: Sharonda Aguiar on 03/22/19 2:[address] SPOKE WITH ARIANNA AT THE PA, SHE STATED THAT THEY HAD TO BE NOTIFIED WITHIN 72 HOURS OF ADMISSION FROM ER. SHE DID GIVE ME TRISTAN RIBERAN NUMBER WHO IS OVER THE ACUTE REHAB CALL HER TO SEE IF THERE IS ANYTHING SHE COULD DO [phone] DCP- Discharge Planning Updated by [id number]: Sharonda Aguiar on 03/22/19 8:[address] VANCE HERE TO SPEAK WITH PATIENT, SHE IS GETTING FINANCIAL INFO FROM PATIENT. DCP- Discharge Planning Updated by [email or web address]: Sharonda Aguiar on 03/19/19 2:[address] [facility]UL[facility] HAS CALLED AND SAID THAT HE ONLY HAS 2 DAYS TILL HIS CO-PAY DAYS START, HIS FRIEND NAI WOODS STATED HE HAD THE VA. ZULY WAS GOING TO CALL THE VA, IF THEY COULD NOT COVER THE CO-PAY (THEY DID NOT THINK IT WOULD BE COVERED) THEY WERE GOING TO TALK TO THE PATIENT ABOUT APPYING FOR KAYDEN. HE IS CLINICALLY APPROVED TO GO TO [place]. JUST NEED FINANICALS NOW AND AUTH FROM [facility] DCP- Discharge Planning Updated by [email or web address]: Sharonda Aguiar on 03/19/19 10:[address] met with patient about dc plan, he would like to go back to [place], [place] signed and referral sent to [facility]/[place]. [facility] also signed and explained. CM to follow and assist with dc planning DCP- Discharge Planning Updated by [id number]: Juana Quintana on 03/16/19 4:[address] DC PLAN: Return home alone - ANTICIPATED DC NEEDS: home health CM met with patient and his friend, Carlos Manuel Regan to complete initial dc planning assessment. CM educated patient on the CM role and verbal consent given by patient to complete assessment. CM verified patient's address, phone number, and emergency contact phone numbers. Patient lives at home alone and reports he is independent in his care at home. Jass is shaking his head NO when patient is saying his independent. CM questioned Jass as to why he was shaking his head and he stated for the last month he has been struggling. He was placed in [facility] and he "ESCAPED" from there. Cm asked patient about this and he said "yes, he was ready to go home so he left". At discharge patient plans to return home and feels this is a safe discharge. Jass disagrees that he needs to go home. CM discussed availability of home health, rehab services, and medical equipment. Patient stated the [place] sends someone once a month to see about him. He is not sure this is home health or what. Patient denied known discharge needs at this time. Patient may need home health at ar if the [place] is not providing this service. Transportation provider at discharge will be either Jass or his sister. CM will continue to follow and will assist as needed with dc plans/needs. Juana Quintana RN, [facility] DCPIA - Discharge Planning Initial Assessment Updated by [id number]: Juana Quintana on 03/16/19 5:13 pm * Is the patient Alert and Oriented? Yes * How many steps to enter\\exit or inside your home? Elevator * PCP [facility] MD * Pharmacy [facility] * Preadmission Environment Home Alone * ADLs Partial Dependent * Partial ADLs (Assistance needed) Ambulation * Equipment Hospital Bed Power Chair or Electric Scooter * Other Equipment Transfer Chair * List name and contact numbers for known caregivers / representatives who currently or will assist patient after discharge: Carlos Manuel mantilla [phone] Rabia lo - [phone] * Verbal permission to speak to the caregivers and representatives has been obtained from the patient. Yes * Community resources currently utilized Other * Please name any agencies selected above. VA sends someone once a month. Not sure if this is home health. * Additional services required to return to the preadmission environment? Yes * Can the patient safely return to the preadmission environment? Yes Coverage Notice Reviewer: [id number] Jerry Aguiar Notice Issued Date-Time: 03/19/2019 10:00 Notice Type: IM Discharge Notice Notice Delivered To: Patient Relationship to Patient: Quantitative Analyst Marketing Name: Delivery Method: HAND - Hand Delivered Katherin Days: Prior Verbal Notification: Recipient Understood Notice: Yes Recipient Signature: Yes Med Rec Note Co-signed by Attending: Coverage Notice Comment: Reviewer: [id number] Jerry Quintana Notice Issued Date-Time: 03/16/2019 15:05 Notice Type: Medicare Outpatient Observation Notice Notice Delivered To: Patient Relationship to Patient: Quantitative Analyst Marketing Name: Delivery Method: HAND - Hand Delivered Katherin Days: Prior Verbal Notification: Recipient Understood Notice: Recipient Signature: Med Rec Note Co-signed by Attending: Coverage Notice Comment: ZAMAN delivered, explained, signed by the patient, and placed in his chart. Signed form also left with patient. Juana Quintana RN , [facility] Reviewer: [id number] Jerry Aguiar Notice Issued Date-Time: 03/19/2019 10:00 Notice Type: Patient Choice Letter Notice Delivered To: Patient Relationship to Patient: Quantitative Analyst Marketing Name: Delivery Method: HAND - Hand Delivered Katherin Days: Prior Verbal Notification: Recipient Understood Notice: Yes Recipient Signature: Yes Med Rec Note Co-signed by Attending: Coverage Notice Comment: orville Miller DP export: 03/23/19 8:11 Patient Name: ARTUR LEE Page [id number] at 0939 All edits/amendments must be made on the electronic document DICTATION DATE: 03/23/19937 GREASE MAKER: TESFAYE 03/23/19937 RPT#: [id number] DC DATE: STATUS: ADM IN [facility] [address] [place] [address] END OF REPORT
--- NOTE | 2019-03-23 10:18 | NUR ---
OT NOTE: PT DOING WELL. BED MOB WITH MIN/MOD ASSIST FOR SUPINE TO SIDE; SITTING BALANCE IS FAIR ON EOB. ABLE TO PERFORM UPPER BODY BATHING WITH SET UP; SIT TO STAND WITH MOD ASSIST; ABLE TO STAND WITH WALKER WITH MIN ASSIST WHILE PERINEAL CARE PERFORMED AND ADJUSTMENT OF BRACE PERFORMED. MAX ASSIST TO CLIFF SOCKS AND WASH FEET. FEEDING WITH SET UP OF TRAY; BACK TO BED WITH VERY MINIMAL ASSIST. JONATHON PERRY, OTR/L
[2019-03-23] MEDS ORDERED: NIFEREX-150 CAP1 CA3 PO (10:52)
--- NOTE | 2019-03-23 11:53 | MORECARE ---
CASE MANAGEMENT DISCHARGE SUMMARY PATIENT: ARTUR LEE UNIT: [id number] ADM DATE: 03/17/19 AGE: 68 : 50 SEX: M ROOM/BED: D.2217 AUTHOR: LEILANI,DOC PHYSICIAN: REFERRING PHYSICIAN: DINO CALZADA MD DATE OF SERVICE: 03/23/19 Discharge Plan Patient Name: ARTUR LEE Facility: [facility]:[place] : 1950 Planned Disposition: Home Anticipated Discharge Date: 03/17/19 Discharge Date: Expected LOS: 1 Initial Reviewer: [email or web address] Initial Review Date: 03/16/2019 Generated: 03/23/19 12:52 pm Comments DCP- Discharge Planning Updated by [email or web address]: Sharonda Aguiar on 03/23/19 10:[address] TRISTAN WITH THE VA CALLED BACK AND STATED THAT HE NEEDED JAIL CARE. SHE LOOKED BACK ALL THE WAY TO 2012 I RECEIVED A CALL FROM [employer] THAT THEY HAVE AUTH FOR HIM AND HE WILL BE ACCEPTED TODAY. CM TO FOLLOW AND ASSIST. I HAVE LEFT MESSAGE FOR LANE TO CALL ME [facility] TO SENT UP TRANSPORTATION DCP- Discharge Planning Updated by [id number]: Sharonda Aguiar on 03/23/19 8:[address] TRISTAN WITH THE VA CALLED [facility] AND ASKED FOR CLINICALS TO BE SENT TO [phone] DCP- Discharge Planning Updated by [email or web address]: Sharodna Aguiar on 03/23/19 8:[address] CALLED TRISTAN WHITFIELD WITH THE [place] & LEFT MESSAGE FOR HER TO CALL ME BACK [phone] TO SEE IF THE PATIENT HAD OPTIONS FOR REHAB THERE DCP- Discharge Planning Updated by [id number]: Sharonda Aguiar on 03/22/19 2:[address] SPOKE WITH ARIANNA AT THE [place], SHE STATED THAT THEY HAD TO BE NOTIFIED WITHIN 72 HOURS OF ADMISSION FROM ER. SHE DID GIVE ME TRISTAN WHITFIELD NUMBER WHO IS OVER THE ACUTE REHAB CALL HER TO SEE IF THERE IS ANYTHING SHE COULD DO [phone] DCP- Discharge Planning Updated by [id number]: Sharonda Aguiar on 03/22/19 8:[address] VANCE HERE TO SPEAK WITH PATIENT, SHE IS GETTING FINANCIAL INFO FROM PATIENT. DCP- Discharge Planning Updated by [id number]: Sharonda Aguiar on 03/19/19 2:[address] ZULY HAS CALLED AND SAID THAT HE ONLY HAS 2 DAYS TILL HIS CO-PAY DAYS START, HIS FRIEND NAI WOODS STATED HE HAD THE VA. [facility] WAS GOING TO CALL THE VA, IF THEY COULD NOT COVER THE CO-PAY (THEY DID NOT THINK IT WOULD BE COVERED) THEY WERE GOING TO TALK TO THE PATIENT ABOUT APPYING FOR KAYDEN. HE IS CLINICALLY APPROVED TO GO TO [place]. JUST NEED FINANICALS NOW AND AUTH FROM [facility] DCP- Discharge Planning Updated by [id number]: Sharonda Aguiar on 03/19/19 10:[address] met with patient about dc plan, he would like to go back to [place], [place] signed and referral sent to [facility]/[place]. [facility] also signed and explained. CM to follow and assist with dc planning DCP- Discharge Planning Updated by [id number]: Juanakiki Quintana on 03/16/19 4:[address] DC PLAN: Return home alone - ANTICIPATED DC NEEDS: home health CM met with patient and his friend, Carlos Manuel Regan to complete initial dc planning assessment. CM educated patient on the CM role and verbal consent given by patient to complete assessment. CM verified patient's address, phone number, and emergency contact phone numbers. Patient lives at home alone and reports he is independent in his care at home. Jass is shaking his head NO when patient is saying his independent. CM questioned Jass as to why he was shaking his head and he stated for the last month he has been struggling. He was placed in [facility] and he "ESCAPED" from there. Cm asked patient about this and he said "yes, he was ready to go home so he left". At discharge patient plans to return home and feels this is a safe discharge. Jass disagrees that he needs to go home. CM discussed availability of home health, rehab services, and medical equipment. Patient stated the [place] sends someone once a month to see about him. He is not sure this is home health or what. Patient denied known discharge needs at this time. Patient may need home health at dc if the [place] is not providing this service. Transportation provider at discharge will be either Jass or his sister. CM will continue to follow and will assist as needed with dc plans/needs. Juana Quintana RN, CCM DCPIA - Discharge Planning Initial Assessment Updated by [email or web address]: Juana Quintana on 03/16/19 5:13 pm * Is the patient Alert and Oriented? Yes * How many steps to enter\\exit or inside your home? Elevator * PCP [facility] MD * Pharmacy [place] [facility] * Preadmission Environment Home Alone * ADLs Partial Dependent * Partial ADLs (Assistance needed) Ambulation * Equipment Hospital Bed Power Chair or Electric Scooter * Other Equipment Transfer Chair * List name and contact numbers for known caregivers / representatives who currently or will assist patient after discharge: Carlos Manuel mantilla - [phone] Rabia lo - [phone] * Verbal permission to speak to the caregivers and representatives has been obtained from the patient. Yes * Community resources currently utilized Other * Please name any agencies selected above. [place] sends someone once a month. Not sure if this is home health. * Additional services required to return to the preadmission environment? Yes * Can the patient safely return to the preadmission environment? Yes Coverage Notice Reviewer: [id number] - Juana Quintana Notice Issued Date-Time: 03/16/2019 15:05 Notice Type: Medicare Outpatient Observation Notice Notice Delivered To: Patient Relationship to Patient: Hook And Eye Sewing Machine Operator Name: Delivery Method: HAND - Hand Delivered Katherin Days: Prior Verbal Notification: Recipient Understood Notice: Recipient Signature: Med Rec Note Co-signed by Attending: Coverage Notice Comment: ZAMAN delivered, explained, signed by the patient, and placed in his chart. Signed form also left with patient. Juana Quintana RN , CCM Reviewer: [id number] Jerry Aguiar Notice Issued Date-Time: 03/19/2019 10:00 Notice Type: IM Discharge Notice Notice Delivered To: Patient Relationship to Patient: Hook And Eye Sewing Machine Operator Name: Delivery Method: HAND - Hand Delivered Katherin Days: Prior Verbal Notification: Recipient Understood Notice: Yes Recipient Signature: Yes Med Rec Note Co-signed by Attending: Coverage Notice Comment: Reviewer: [id number] Jerry Aguiar Notice Issued Date-Time: 03/19/2019 10:00 Notice Type: Patient Choice Letter Notice Delivered To: Patient Relationship to Patient: Hook And Eye Sewing Machine Operator Name: Delivery Method: HAND - Hand Delivered Katherin Days: Prior Verbal Notification: Recipient Understood Notice: Yes Recipient Signature: Yes Med Rec Note Co-signed by Attending: Coverage Notice Comment: [place] with qumaria luisaw Last DP export: 03/23/19 8:39 Patient Name: ARTUR LEE Page [id number] at 1153 All edits/amendments must be made on the electronic document DICTATION DATE: 03/23/19 115 SET UP OPERATOR TOOL: TESFAYE 03/23/19 1152 RPT#: [id number] DC DATE: STATUS: ADM IN [facility] [address] [place] [address] END OF REPORT
--- NOTE | 2019-03-23 12:01 | MORECARE ---
CASE MANAGEMENT DISCHARGE SUMMARY PATIENT: ARTUR LEE UNIT: [id number] ADM DATE: 03/17/19 AGE: 68 : 50 SEX: M ROOM/BED: D.2217 AUTHOR: LEILANI,DOC PHYSICIAN: REFERRING PHYSICIAN: DINO CALZADA MD DATE OF SERVICE: 03/23/19 Discharge Plan Patient Name: ARTUR LEE Facility: [facility]:[place] : 1950 Planned Disposition: Home Anticipated Discharge Date: 03/17/19 Discharge Date: Expected LOS: 1 Initial Reviewer: [id number] Initial Review Date: 03/16/2019 Generated: 03/23/19 1:00 pm Comments DCP- Discharge Planning Updated by [id number]: Sharonda Aguiar on 03/23/19 10:[address] IMM SERVED AND EXPLAINED. DCP- Discharge Planning Updated by [id number]: Sharonda Aguiar on 03/23/19 10:[address] TRISTAN WITH THE [place] CALLED BACK AND STATED THAT HE NEEDED JAIL CARE. SHE LOOKED BACK ALL THE WAY TO 2012 I RECEIVED A CALL FROM [employer] THAT THEY HAVE AUTH FOR HIM AND HE WILL BE ACCEPTED TODAY. CM TO FOLLOW AND ASSIST. I HAVE LEFT MESSAGE FOR LANE TO CALL ME [facility] TO SENT UP TRANSPORTATION DCP- Discharge Planning Updated by [id number]: Sharonda Aguiar on 03/23/19 8:[address] TRISTAN WITH THE [place] CALLED [facility] AND ASKED FOR CLINICALS TO BE SENT TO [phone] DCP- Discharge Planning Updated by [id number]: Sharonda Aguiar on 03/23/19 8:[address] CALLED TRISTAN WHITFIELD WITH THE [place] & LEFT MESSAGE FOR HER TO CALL ME BACK [phone] TO SEE IF THE PATIENT HAD OPTIONS FOR REHAB THERE DCP- Discharge Planning Updated by [id number]: Sharonda Aguiar on 03/22/19 2:[address] SPOKE WITH ARIANNA AT THE [place], SHE STATED THAT THEY HAD TO BE NOTIFIED WITHIN 72 HOURS OF ADMISSION FROM ER. SHE DID GIVE ME TRISTAN WHITFIELD NUMBER WHO IS OVER THE ACUTE REHAB CALL HER TO SEE IF THERE IS ANYTHING SHE COULD DO [phone] DCP- Discharge Planning Updated by [email or web address]: Sharonda Aguiar on 03/22/19 8:[address] SHREYA HERE TO SPEAK WITH PATIENT, SHE IS GETTING FINANCIAL INFO FROM PATIENT. DCP- Discharge Planning Updated by [id number]: Sharonda Aguiar on 03/19/19 2:[address] [facility] HAS CALLED AND SAID THAT HE ONLY HAS 2 DAYS TILL HIS CO-PAY DAYS START, HIS FRIEND NAI WOODS STATED HE HAD THE VA. [place] WAS GOING TO CALL THE VA, IF THEY COULD NOT COVER THE CO-PAY (THEY DID NOT THINK IT WOULD BE COVERED) THEY WERE GOING TO TALK TO THE PATIENT ABOUT APPYING FOR KAYDEN. HE IS CLINICALLY APPROVED TO GO TO [place]. JUST NEED FINANICALS NOW AND AUTH FROM [facility] DCP- Discharge Planning Updated by [email or web address]: Sharonda Aguiar on 03/19/19 10:[address] met with patient about dc plan, he would like to go back to [place], [place] signed and referral sent to [facility]. [facility] also signed and explained. CM to follow and assist with dc planning DCP- Discharge Planning Updated by [email or web address]: Juanakiki Quintana on 03/16/19 4:[address] DC PLAN: Return home alone - ANTICIPATED DC NEEDS: home health CM met with patient and his friend, Carlos Manuel Regan to complete initial dc planning assessment. CM educated patient on the CM role and verbal consent given by patient to complete assessment. CM verified patient's address, phone number, and emergency contact phone numbers. Patient lives at home alone and reports he is independent in his care at home. Jass is shaking his head NO when patient is saying his independent. CM questioned Jass as to why he was shaking his head and he stated for the last month he has been struggling. He was placed in [facility] and he "ESCAPED" from there. Cm asked patient about this and he said "yes, he was ready to go home so he left". At discharge patient plans to return home and feels this is a safe discharge. Jass disagrees that he needs to go home. CM discussed availability of home health, rehab services, and medical equipment. Patient stated the [place] sends someone once a month to see about him. He is not sure this is home health or what. Patient denied known discharge needs at this time. Patient may need home health at dc if the [place] is not providing this service. Transportation provider at discharge will be either Jass or his sister. CM will continue to follow and will assist as needed with dc plans/needs. Juana Quintana RN, [facility] DCPIA - Discharge Planning Initial Assessment Updated by [email or web address]: Juana Quintana on 03/16/19 5:13 pm * Is the patient Alert and Oriented? Yes * How many steps to enter\\exit or inside your home? Elevator * PCP [facility] MD * Pharmacy [place] [facility] * Preadmission Environment Home Alone * ADLs Partial Dependent * Partial ADLs (Assistance needed) Ambulation * Equipment Hospital Bed Power Chair or Electric Scooter * Other Equipment Transfer Chair * List name and contact numbers for known caregivers / representatives who currently or will assist patient after discharge: Carlos Manuel Regan - friend - [phone] Rabia Edwards sister - [phone] * Verbal permission to speak to the caregivers and representatives has been obtained from the patient. Yes * Community resources currently utilized Other * Please name any agencies selected above. [place] sends someone once a month. Not sure if this is home health. * Additional services required to return to the preadmission environment? Yes * Can the patient safely return to the preadmission environment? Yes Coverage Notice Reviewer: [id number] Jerry Aguiar Notice Issued Date-Time: 03/23/2019 11:50 Notice Type: IM Discharge Notice Notice Delivered To: Patient Relationship to Patient: Manager Of Data Name: Delivery Method: HAND - Hand Delivered Katherin Days: Prior Verbal Notification: Recipient Understood Notice: Yes Recipient Signature: Yes Med Rec Note Co-signed by Attending: Coverage Notice Comment: Reviewer: [id number] Jerry Aguiar Notice Issued Date-Time: 03/19/2019 10:00 Notice Type: IM Discharge Notice Notice Delivered To: Patient Relationship to Patient: Manager Of Data Name: Delivery Method: HAND - Hand Delivered Katherin Days: Prior Verbal Notification: Recipient Understood Notice: Yes Recipient Signature: Yes Med Rec Note Co-signed by Attending: Coverage Notice Comment: Reviewer: [id number] Jerry Quintana Notice Issued Date-Time: 03/16/2019 15:05 Notice Type: Medicare Outpatient Observation Notice Notice Delivered To: Patient Relationship to Patient: Manager Of Data Name: Delivery Method: HAND - Hand Delivered Katherin Days: Prior Verbal Notification: Recipient Understood Notice: Recipient Signature: Med Rec Note Co-signed by Attending: Coverage Notice Comment: ZAMAN delivered, explained, signed by the patient, and placed in his chart. Signed form also left with patient. Juana Quintana RN , [facility] Reviewer: [id number] Jerry Aguiar Notice Issued Date-Time: 03/19/2019 10:00 Notice Type: Patient Choice Letter Notice Delivered To: Patient Relationship to Patient: Manager Of Data Name: Delivery Method: HAND - Hand Delivered Katherin Days: Prior Verbal Notification: Recipient Understood Notice: Yes Recipient Signature: Yes Med Rec Note Co-signed by Attending: Coverage Notice Comment: [place] with camryn Last DP export: 03/23/19 10:53 Patient Name: ARTUR LEE Page [phone] at 1201 All edits/amendments must be made on the electronic document DICTATION DATE: 03/23/19 1200 SALES REPRESENTATIVE WIRE ROPE: TESFAYE 03/23/19 1200 RPT#: [id number] DC DATE: STATUS: ADM IN [facility] [address] [place] [address] END OF REPORT
--- NOTE | 2019-03-23 12:44 | MORECARE ---
CASE MANAGEMENT DISCHARGE SUMMARY PATIENT: ARTUR LEE UNIT: [id number] ADM DATE: 03/17/19 AGE: 68 : 50 SEX: M ROOM/BED: D.2217 AUTHOR: LEILANI,DOC PHYSICIAN: REFERRING PHYSICIAN: DINO CALZADA MD DATE OF SERVICE: 03/23/19 Discharge Plan Patient Name: ARTUR LEE Facility: [facility]:[place] : 1950 Planned Disposition: Home Anticipated Discharge Date: 03/17/19 Discharge Date: Expected LOS: 1 Initial Reviewer: [id number] Initial Review Date: 03/16/2019 Generated: 03/23/19 1:44 pm Comments DCP- Discharge Planning Updated by [id number]: Sharonda Aguiar on 03/23/19 11:[address] PT WILL BE PICKED UP AFTER 1:00 BY [facility], HE WILL BE GOING TO A SKILLED BED. CM TO FOLLOW AND ASSIST NEEDED DCP- Discharge Planning Updated by [id number]: Sharonda Aguiar on 03/23/19 10:[address] IMM SERVED AND EXPLAINED. DCP- Discharge Planning Updated by [email or web address]: Sharonda Aguiar on 03/23/19 10:[address] [facility] CALL[facility] BACK AND STATED THAT HE NEEDED [facility]. SHE LOOKED BACK ALL THE WAY TO 2012 I RECEIVED A CALL FROM [facility] THAT THEY HAVE AUTH FOR HIM AND HE WILL BE ACCEPTED TODAY. CM TO FOLLOW AND ASSIST. I HAVE LEFT MESSAGE FOR LANE TO CALL ME [facility] TO SENT UP TRANSPORTATION DCP- Discharge Planning Updated by [id number]: Sharonda Aguiar on 03/23/19 8:[address] [facility] WITH [facility] CALLED [facility] AND ASKED FOR CLINICALS TO BE SENT TO [phone] DCP- Discharge Planning Updated by [id number]: Sharonda Aguiar on 03/23/19 8:[address] CALLED TRISTAN WHITFIELD WITH [facility] & LEFT MESSAGE FOR HER TO CALL ME BACK [phone] TO SEE IF THE PATIENT HAD OPTIONS FOR REHAB THERE DCP- Discharge Planning Updated by [id number]: Sharonda Aguiar on 03/22/19 2:[address] SPOKE WITH [facility] AT [facility], SHE STATED THAT THEY HAD TO BE NOTIFIED WITHIN 72 HOURS OF ADMISSION FROM ER. SHE DID GIVE ME TRISTAN ZAMUDIO WHO IS OVER THE ACUTE REHAB CALL HER TO SEE IF THERE IS ANYTHING SHE COULD DO [phone] DCP- Discharge Planning Updated by [id number]: Sharonda Aguiar on 03/22/19 8:[address] SHREYA HERE TO SPEAK WITH PATIENT, SHE IS GETTING FINANCIAL INFO FROM PATIENT. DCP- Discharge Planning Updated by [id number]: Sharonda Aguiar on 03/19/19 2:[address] [facility] HAS CALLED AND SAID THAT HE ONLY HAS 2 DAYS TILL HIS CO-PAY DAYS START, HIS FRIEND NAI WOODS STATED HE HAD THE VA. CAMRYN WAS GOING TO CALL THE VA, IF THEY COULD NOT COVER THE CO-PAY (THEY DID NOT THINK IT WOULD BE COVERED) THEY WERE GOING TO TALK TO THE PATIENT ABOUT APPYING FOR [facility]. HE IS CLINICALLY APPROVED TO GO TO [facility]. JUST NEED FINANICALS NOW AND AUTH FROM [facility] DCP- Discharge Planning Updated by [id number]: Sharonda Aguiar on 03/19/19 10:[address] met with patient about dc plan, he would like to go back to [place], [place] signed and referral sent to Shreya/Camryn. IMM also signed and explained. CM to follow and assist with dc planning DCP- Discharge Planning Updated by [id number]: Juana Quintana on 03/16/19 4:[address] DC PLAN: Return home alone - ANTICIPATED DC NEEDS: home health CM met with patient and his friend, Carlos Manuel Regan to complete initial dc planning assessment. CM educated patient on the CM role and verbal consent given by patient to complete assessment. CM verified patient's address, phone number, and emergency contact phone numbers. Patient lives at home alone and reports he is independent in his care at home. Jass is shaking his head NO when patient is saying his independent. CM questioned Jass as to why he was shaking his head and he stated for the last month he has been struggling. He was placed in [facility] and he "ESCAPED" from there. Cm asked patient about this and he said "yes, he was ready to go home so he left". At discharge patient plans to return home and feels this is a safe discharge. Jass disagrees that he needs to go home. CM discussed availability of home health, rehab services, and medical equipment. Patient stated the [facility] sends someone once a month to see about him. He is not sure this is home health or what. Patient denied known discharge needs at this time. Patient may need home health at dc if the [facility] is not providing this service. Transportation provider at discharge will be either Jass or his sister. CM will continue to follow and will assist as needed with dc plans/needs. Juana Quintana RN, CCM DCPIA - Discharge Planning Initial Assessment Updated by [email or web address]: uJana Quintana on 03/16/19 5:13 pm * Is the patient Alert and Oriented? Yes * How many steps to enter\\exit or inside your home? Elevator * PCP [facility] MD * Pharmacy [facility] * Preadmission Environment Home Alone * ADLs Partial Dependent * Partial ADLs (Assistance needed) Ambulation * Equipment Hospital Bed Power Chair or Electric Scooter * Other Equipment Transfer Chair * List name and contact numbers for known caregivers / representatives who currently or will assist patient after discharge: Carlos Manuel Regan friend - [phone] Rabia Edwards sister - [phone] * Verbal permission to speak to the caregivers and representatives has been obtained from the patient. Yes * Community resources currently utilized Other * Please name any agencies selected above. [facility] sends someone once a month. Not sure if this is home health. * Additional services required to return to the preadmission environment? Yes * Can the patient safely return to the preadmission environment? Yes Coverage Notice Reviewer: [id number] - Juana Quintana Notice Issued Date-Time: 03/16/2019 15:05 Notice Type: Medicare Outpatient Observation Notice Notice Delivered To: Patient Relationship to Patient: Biscuit Factory Worker Name: Delivery Method: HAND - Hand Delivered Katherin Days: Prior Verbal Notification: Recipient Understood Notice: Recipient Signature: Med Rec Note Co-signed by Attending: Coverage Notice Comment: ZAMAN delivered, explained, signed by the patient, and placed in his chart. Signed form also left with patient. Juana Quintana RN , CCM Reviewer: [id number] - Sharonda Aguiar Notice Issued Date-Time: 03/19/2019 10:00 Notice Type: IM Discharge Notice Notice Delivered To: Patient Relationship to Patient: Biscuit Factory Worker Name: Delivery Method: HAND - Hand Delivered Katherin Days: Prior Verbal Notification: Recipient Understood Notice: Yes Recipient Signature: Yes Med Rec Note Co-signed by Attending: Coverage Notice Comment: Reviewer: [id number] Jerry Aguiar Notice Issued Date-Time: 03/19/2019 10:00 Notice Type: Patient Choice Letter Notice Delivered To: Patient Relationship to Patient: Biscuit Factory Worker Name: Delivery Method: HAND - Hand Delivered Katherin Days: Prior Verbal Notification: Recipient Understood Notice: Yes Recipient Signature: Yes Med Rec Note Co-signed by Attending: Coverage Notice Comment: [place] with thaniaw Reviewer: [id number] Aguiar Notice Issued Date-Time: 03/23/2019 11:50 Notice Type: IM Discharge Notice Notice Delivered To: Patient Relationship to Patient: Biscuit Factory Worker Name: Delivery Method: HAND - Hand Delivered Katherin Days: Prior Verbal Notification: Recipient Understood Notice: Yes Recipient Signature: Yes Med Rec Note Co-signed by Attending: Coverage Notice Comment: Last DP export: 03/23/19 11:01 Patient Name: ARTUR LEE Page [id number] at 1244 All edits/amendments must be made on the electronic document DICTATION DATE: 03/23/19 1244 VIDEO PRESENTATION OPERATOR: TESFAYE 03/23/19 1244 RPT#: [id number] DC DATE: STATUS: ADM IN [facility] [address] [place] [address] END OF REPORT
[2019-03-23 12:54] VITALS: BP 130/68
--- NOTE | 2019-03-23 12:54 | NUR ---
REPORT TO AZAR CHAN TERRA BELLA
--- NOTE | 2019-03-23 13:12 | NUR ---
IV DCD WITH CATH TIP INTACT. DISCHARGE INSTRUCTIONS,PT STATES UNDERSTANDING. [facility]
--- NOTE | 2019-03-23 13:52 | NUR ---
LEFT UNIT WITH [facility] STAFF.
--- NOTE | 2019-03-23 16:07 | NUR ---
OT NOTE: PT COMPLETED SELF BATHING TASKS AT [facility] WITH MIN A FOR UB AND TOTAL A FOR LB. PT COMPLETED ORAL HYGIENE TASK WITH SET UP. PT COMPLETED HAIR GROOMING WITH SET UP AT EOB. PT COMPLETED SUPINE TO SIT WITH MIN A. THANK YOU, STEFANIE GRIFFIN
--- NOTE | 2019-03-27 15:53 | MORECARE ---
CASE MANAGEMENT DISCHARGE SUMMARY PATIENT: ARTUR LEE UNIT: [id number] ADM DATE: 03/17/19 AGE: 68 : 50 SEX: M ROOM/BED: D.2217 AUTHOR: LEILANI,DOC PHYSICIAN: REFERRING PHYSICIAN: DINO CALZADA MD DATE OF SERVICE: 03/27/19 Discharge Plan Patient Name: ARTUR LEE Facility: [facility]:[place] : 1950 Planned Disposition: Home Anticipated Discharge Date: 03/23/19 Discharge Date: 03/23/2019 Expected LOS: 6 Initial Reviewer: [id number] Initial Review Date: 03/16/2019 Generated: 03/27/19 4:53 pm Comments DCP- Discharge Planning Updated by [id number]: Sharonda Aguiar on 03/23/19 11:[address] PT WILL BE PICKED UP AFTER 1:00 BY [facility], HE WILL BE GOING TO A SKILLED BED. CM TO FOLLOW AND ASSIST NEEDED DCP- Discharge Planning Updated by [id number]: Sharonda Aguiar on 03/23/19 10:[address] IMM SERVED AND EXPLAINED. DCP- Discharge Planning Updated by [id number]: Sharonda Aguiar on 03/23/19 10:[address] [facility] WITH [facility] CALLED BACK AND STATED THAT HE NEEDED [facility] CARE. SHE LOOKED BACK ALL THE WAY TO 2012 I RECEIVED A CALL FROM [facility] THAT THEY HAVE AUTH FOR HIM AND HE WILL BE ACCEPTED TODAY. CM TO FOLLOW AND ASSIST. I HAVE LEFT MESSAGE FOR LANE TO CALL ME [facility] TO SENT UP TRANSPORTATION DCP- Discharge Planning Updated by [id number]: Sharonda Aguiar on 03/23/19 8:[address] [facility]STAN WITH [facility] CALLED [facility] AND ASKED FOR CLINICALS TO BE SENT TO [phone] DCP- Discharge Planning Updated by [email or web address]: Sharonda Aguiar on 03/23/19 8:[address] CALLED TRISTAN [facility]FIELD WITH [facility] & LEFT MESSAGE FOR HER TO CALL ME BACK [phone] TO SEE IF THE PATIENT HAD OPTIONS FOR REHAB THERE DCP- Discharge Planning Updated by [id number]: Sharonda Aguiar on 03/22/19 2:[address] SPOKE WITH [facility], SHE STATED THAT THEY HAD TO BE NOTIFIED WITHIN 72 HOURS OF ADMISSION FROM ER. SHE DID GIVE ME TRISTAN ZAMUDIO WHO IS OVER THE ACUTE REHAB CALL HER TO SEE IF THERE IS ANYTHING SHE COULD DO [phone] DCP- Discharge Planning Updated by [id number]: Sharonda Aguiar on 03/22/19 8:[address] SHREYA HERE TO SPEAK WITH PATIENT, SHE IS GETTING FINANCIAL INFO FROM PATIENT. DCP- Discharge Planning Updated by [id number]: Sharonda Aguiar on 03/19/19 2:[address] [facility] HAS CALLED AND SAID THAT HE ONLY HAS 2 DAYS TILL HIS CO-PAY DAYS START, HIS FRIEND NAI WOODS STATED HE HAD THE VA. [facility] WAS GOING TO CALL THE [facility], IF THEY COULD NOT COVER THE CO-PAY (THEY DID NOT THINK IT WOULD BE COVERED) THEY WERE GOING TO TALK TO THE PATIENT ABOUT APPYING FOR [facility]. HE IS CLINICALLY APPROVED TO GO TO [place]. JUST NEED FINANICALS NOW AND AUTH FROM [facility] DCP- Discharge Planning Updated by [id number]: Sharonda Reyesken on 03/19/19 10:[address] met with patient about dc plan, he would like to go back to [place], [place] signed and referral sent to Shreya/Camryn. IMM also signed and explained. CM to follow and assist with dc planning DCP- Discharge Planning Updated by [id number]: Juana Quintana on 03/16/19 4:[address] DC PLAN: Return home alone - ANTICIPATED DC NEEDS: home health CM met with patient and his friend, Carlos Manuel Regan to complete initial dc planning assessment. CM educated patient on the CM role and verbal consent given by patient to complete assessment. CM verified patient's address, phone number, and emergency contact phone numbers. Patient lives at home alone and reports he is independent in his care at home. Jass is shaking his head NO when patient is saying his independent. CM questioned Jass as to why he was shaking his head and he stated for the last month he has been struggling. He was placed in [facility] and he "ESCAPED" from there. Cm asked patient about this and he said "yes, he was ready to go home so he left". At discharge patient plans to return home and feels this is a safe discharge. Jass disagrees that he needs to go home. CM discussed availability of home health, rehab services, and medical equipment. Patient stated the [facility] sends someone once a month to see about him. He is not sure this is home health or what. Patient denied known discharge needs at this time. Patient may need home health at dc if the [facility] is not providing this service. Transportation provider at discharge will be either Jass or his sister. CM will continue to follow and will assist as needed with dc plans/needs. Juana Quintana RN, CCM DCPIA - Discharge Planning Initial Assessment Updated by [email or web address]: Juana Quintana on 03/16/19 5:13 pm * Is the patient Alert and Oriented? Yes * How many steps to enter\\exit or inside your home? Elevator * PCP [facility] MD * [facility]acy [facility] * Preadmission Environment Home Alone * ADLs Partial Dependent * Partial ADLs (Assistance needed) Ambulation * Equipment Hospital Bed Power Chair or Electric Scooter * Other Equipment Transfer Chair * List name and contact numbers for known caregivers / representatives who currently or will assist patient after discharge: Carlos Manuel Regan - friend - [phone] Rabia Edwards sister - [phone] * Verbal permission to speak to the caregivers and representatives has been obtained from the patient. Yes * Community resources currently utilized Other * Please name any agencies selected above. [facility] sends someone once a month. Not sure if this is home health. * Additional services required to return to the preadmission environment? Yes * Can the patient safely return to the preadmission environment? Yes Coverage Notice Reviewer: [id number] - Juana Quintana Notice Issued Date-Time: 03/16/2019 15:05 Notice Type: Medicare Outpatient Observation Notice Notice Delivered To: Patient Relationship to Patient: Powder Compounder Name: Delivery Method: HAND - Hand Delivered Katherin Days: Prior Verbal Notification: Recipient Understood Notice: Recipient Signature: Med Rec Note Co-signed by Attending: Coverage Notice Comment: ZAMAN delivered, explained, signed by the patient, and placed in his chart. Signed form also left with patient. Juana Quintana RN , CCM Reviewer: [id number] Jerry Aguiar Notice Issued Date-Time: 03/19/2019 10:00 Notice Type: IM Discharge Notice Notice Delivered To: Patient Relationship to Patient: Powder Compounder Name: Delivery Method: HAND - Hand Delivered Katherin Days: Prior Verbal Notification: Recipient Understood Notice: Yes Recipient Signature: Yes Med Rec Note Co-signed by Attending: Coverage Notice Comment: Reviewer: [id number] Aguiar Notice Issued Date-Time: 03/19/2019 10:00 Notice Type: Patient Choice Letter Notice Delivered To: Patient Relationship to Patient: Powder Compounder Name: Delivery Method: HAND - Hand Delivered Katherin Days: Prior Verbal Notification: Recipient Understood Notice: Yes Recipient Signature: Yes Med Rec Note Co-signed by Attending: Coverage Notice Comment: [place] with camryn Reviewer: [id number] Aguiar Notice Issued Date-Time: 03/23/2019 11:50 Notice Type: IM Discharge Notice Notice Delivered To: Patient Relationship to Patient: Powder Compounder Name: Delivery Method: HAND - Hand Delivered Katherin Days: Prior Verbal Notification: Recipient Understood Notice: Yes Recipient Signature: Yes Med Rec Note Co-signed by Attending: Coverage Notice Comment: Last DP export: 03/23/19 11:44 Patient Name: ARTUR LEE Page [id number] at 1553 All edits/amendments must be made on the electronic document DICTATION DATE: 03/27/19 155 WIRE MESH GATE ASSEMBLER: TESFAYE 03/27/19 1553 RPT#: [id number] DC DATE:03/23/19 STATUS: DIS IN [facility] [address] [place] [address] END OF REPORT
== END 2019-03-23 13:52 | DRG 560 ==
LOC: D.ER 10:01 → D.MS 15:00 → OBSVTIME 15:10 → D.MS 03-17 16:14
PROVIDERS: Family Medicine; Internal Medicine Nephrology; ADMIT Family Medicine; ATTEND Family Medicine
PROC: 0SSBXZZ Reposition Left Hip Joint, External Approach (ICD-10-PCS; principal; 2019-03-16)
DX: T84.021A Dislocation of internal left hip prosthesis, initial encounter (principal); N39.0 Urinary tract infection, site not specified; K74.60 Unspecified cirrhosis of liver; E11.65 Type 2 diabetes mellitus with hyperglycemia; I10 Essential (primary) hypertension; B96.20 Unspecified Escherichia coli [E. coli] as the cause of diseases classified elsewhere; D64.9 Anemia, unspecified; X50.1XXA Overexertion from prolonged static or awkward postures, initial encounter